=== PATIENT | female | born 1955 | race Caucasian/White ===

== ENCOUNTER → 2019-05-05 08:35 | Outpatient (BNVA) | payer MEDICARE, MEDICAID, SELFPAY | PROVIDERS: Family Provider Family Medicine; PCP Family Medicine; Visit Provider Anesthesiology | DX: M51.36 Other intervertebral disc degeneration, lumbar region (principal); M47.816 Spondylosis without myelopathy or radiculopathy, lumbar region; M17.12 Unilateral primary osteoarthritis, left knee; M19.019 Primary osteoarthritis, unspecified shoulder; M75.41 Impingement syndrome of right shoulder; Z79.891 Long term (current) use of opiate analgesic | CPT/HCPCS: 99214 ==

== ENCOUNTER → 2019-07-06 09:34 | Outpatient (BNVA) | payer MEDICARE, MEDICAID, SELFPAY | PROVIDERS: Family Provider Family Medicine; PCP Family Medicine; Visit Provider Nurse Practitioner | DX: M54.5 Low back pain (principal); M25.562 Pain in left knee; Z79.891 Long term (current) use of opiate analgesic | CPT/HCPCS: 99213; 99214 ==

== ENCOUNTER → 2019-11-03 08:55 | Outpatient (BNVA) | payer MEDICARE, MEDICAID, SELFPAY | PROVIDERS: Family Provider Family Medicine; PCP Family Medicine; Visit Provider Anesthesiology | DX: M47.816 Spondylosis without myelopathy or radiculopathy, lumbar region (principal); M51.36 Other intervertebral disc degeneration, lumbar region; M54.9 Dorsalgia, unspecified; M17.12 Unilateral primary osteoarthritis, left knee; Z79.891 Long term (current) use of opiate analgesic | CPT/HCPCS: 99214 ==

== ENCOUNTER → 2020-01-05 10:33 | Outpatient (BNVA) | payer MEDICARE, MEDICAID, SELFPAY | PROVIDERS: Family Provider Family Medicine; PCP Family Medicine; Visit Provider Nurse Practitioner | DX: M51.36 Other intervertebral disc degeneration, lumbar region (principal); M17.12 Unilateral primary osteoarthritis, left knee; G58.8 Other specified mononeuropathies; Z79.891 Long term (current) use of opiate analgesic | CPT/HCPCS: 99213; 99214 ==

== ENCOUNTER → 2020-03-06 07:47 | Outpatient (BNVA) | payer MEDICARE, MEDICAID, SELFPAY | PROVIDERS: Family Provider Family Medicine; PCP Internal Medicine; Visit Provider Anesthesiology | DX: M51.36 Other intervertebral disc degeneration, lumbar region (principal); M47.816 Spondylosis without myelopathy or radiculopathy, lumbar region; M54.9 Dorsalgia, unspecified; Z79.891 Long term (current) use of opiate analgesic | CPT/HCPCS: 99212; 99214 ==

== ENCOUNTER → 2020-05-07 08:38 | Outpatient (BNVA) | payer MEDICARE, MEDICAID, SELFPAY | PROVIDERS: Family Provider Family Medicine; PCP Internal Medicine; Visit Provider Anesthesiology | DX: G89.29 Other chronic pain (principal); M47.816 Spondylosis without myelopathy or radiculopathy, lumbar region; M51.36 Other intervertebral disc degeneration, lumbar region; M54.9 Dorsalgia, unspecified; M75.41 Impingement syndrome of right shoulder; M19.019 Primary osteoarthritis, unspecified shoulder; M25.561 Pain in right knee; M17.12 Unilateral primary osteoarthritis, left knee; Z79.891 Long term (current) use of opiate analgesic | CPT/HCPCS: 99214 ==

== ENCOUNTER → 2020-07-02 07:58 | Outpatient (BNVA) | payer MEDICARE, MEDICAID, SELFPAY | PROVIDERS: Family Provider Family Medicine; PCP Internal Medicine; Visit Provider Anesthesiology | DX: G89.29 Other chronic pain (principal); M51.36 Other intervertebral disc degeneration, lumbar region; M47.816 Spondylosis without myelopathy or radiculopathy, lumbar region; M54.9 Dorsalgia, unspecified; M75.41 Impingement syndrome of right shoulder; M25.512 Pain in left shoulder; M19.019 Primary osteoarthritis, unspecified shoulder; M17.12 Unilateral primary osteoarthritis, left knee; M25.561 Pain in right knee; Z79.891 Long term (current) use of opiate analgesic | CPT/HCPCS: 99214 ==

== ENCOUNTER → 2020-08-02 08:30 | Outpatient (BNVA) | payer MEDICARE, MEDICAID, SELFPAY | PROVIDERS: Family Provider Family Medicine; PCP Internal Medicine; Visit Provider Anesthesiology | DX: G89.29 Other chronic pain (principal); M47.816 Spondylosis without myelopathy or radiculopathy, lumbar region; M51.36 Other intervertebral disc degeneration, lumbar region; M54.9 Dorsalgia, unspecified; M19.019 Primary osteoarthritis, unspecified shoulder; M75.41 Impingement syndrome of right shoulder; M25.512 Pain in left shoulder; M17.12 Unilateral primary osteoarthritis, left knee; M25.561 Pain in right knee; F17.210 Nicotine dependence, cigarettes, uncomplicated; Z79.891 Long term (current) use of opiate analgesic | CPT/HCPCS: 99214 ==

== ENCOUNTER → 2020-10-01 09:16 | Outpatient (BNVA) | payer MEDICARE, MEDICAID, SELFPAY | PROVIDERS: Family Provider Family Medicine; PCP Internal Medicine; Visit Provider Nurse Practitioner | DX: M51.36 Other intervertebral disc degeneration, lumbar region (principal); M47.816 Spondylosis without myelopathy or radiculopathy, lumbar region; M54.9 Dorsalgia, unspecified; G58.8 Other specified mononeuropathies; M17.12 Unilateral primary osteoarthritis, left knee; M19.019 Primary osteoarthritis, unspecified shoulder; M75.41 Impingement syndrome of right shoulder; F17.210 Nicotine dependence, cigarettes, uncomplicated; Z79.891 Long term (current) use of opiate analgesic | CPT/HCPCS: 99212; 99213 ==

== ENCOUNTER → 2020-12-04 07:54 | Outpatient (BNVA) | payer MEDICARE, MEDICAID, SELFPAY | PROVIDERS: Family Provider Family Medicine; PCP Internal Medicine; Visit Provider Anesthesiology | DX: M51.36 Other intervertebral disc degeneration, lumbar region (principal); M47.816 Spondylosis without myelopathy or radiculopathy, lumbar region; M25.561 Pain in right knee; M25.562 Pain in left knee; M25.511 Pain in right shoulder; M25.512 Pain in left shoulder; Z79.891 Long term (current) use of opiate analgesic | CPT/HCPCS: 99214 ==

== ENCOUNTER → 2021-01-29 08:32 | Outpatient (BNVA) | payer MEDICARE, MEDICAID, SELFPAY | PROVIDERS: Family Provider Family Medicine; PCP Internal Medicine; Visit Provider Anesthesiology | DX: M51.36 Other intervertebral disc degeneration, lumbar region (principal); M47.816 Spondylosis without myelopathy or radiculopathy, lumbar region; M25.561 Pain in right knee; M25.562 Pain in left knee; M25.511 Pain in right shoulder; M25.512 Pain in left shoulder; Z79.891 Long term (current) use of opiate analgesic | CPT/HCPCS: 99214 ==

== ENCOUNTER → 2021-05-27 07:52 | Outpatient (BNVA) | payer MEDICARE, MEDICAID, SELFPAY | PROVIDERS: Family Provider Family Medicine; PCP Internal Medicine; Visit Provider Anesthesiology | DX: G89.29 Other chronic pain (principal); M54.50 Low back pain, unspecified; M25.561 Pain in right knee; M25.562 Pain in left knee; M25.511 Pain in right shoulder; M25.512 Pain in left shoulder; F17.210 Nicotine dependence, cigarettes, uncomplicated; Z79.891 Long term (current) use of opiate analgesic | CPT/HCPCS: 99214 ==

== ENCOUNTER 2021-07-30 11:24 | Outpatient (CLI) | payer MEDICARE, MEDICAID, SELFPAY ==
--- NOTE | 2021-07-30 11:36 | CT_ITS ---
WS: [id number] CT LUMBAR SPINE TECHNIQUE: Noncontrast CT of the lumbar spine with coronal and sagittal reformatted images. CLINICAL INFORMATION: LOW BACK PAINQ COMPARISON: None. DLP: 2700.[address] scans at [facility] use at least one of these dose optimization techniques: automated e xposure control; mA and/or kV adjustment per patient size (includes targeted exams where dose is matc hed to clinical indication); or iterative reconstruction. FINDINGS: Advanced multilevel degenerative disc disease with disc space narrowing throughout the lumbar spine w ith vacuum disc phenomenon. Grade 1 anterolisthesis L4 on L5 measuring 5 mm. No acute appearing compr ession fractures. Mild lumbar curve convex LEFT. L1-L2: Mild disc osteophytic ridging. Mild central canal stenosis. Mild LEFT foraminal narrowing. RIG HT foramen is patent. Moderate facet arthropathy with ligamentum flavum hypertrophy. Impingement on t he subarticular recess LEFT greater than RIGHT. L2-L3: Mild central canal stenosis with mild annular bulging. Moderate facet arthropathy ligamentum f lavum hypertrophy. Foramen are patent. L3-L4: Moderate central canal stenosis due to disc bulging in combination with facet arthropathy and ligamentum flavum hypertrophy. Foramen are patent. Impingement on the LEFT subarticular recess. L4-L5: Grade 1 anterolisthesis. RIGHT subarticular and proximal foraminal disc bulging results in sev ere central canal stenosis. Impingement traversing RIGHT greater than LEFT L5 nerve roots. Impingemen t on the exiting RIGHT L4 nerve root with moderate to severe RIGHT foraminal narrowing. Mild LEFT for aminal narrowing. Moderate to advanced facet arthropathy with ligamentum flavum hypertrophy. L5-S1: Disc osteophytic ridging. Mild central canal stenosis. Moderate RIGHT greater than LEFT forami nal narrowing. Impingement on the exiting RIGHT L5 nerve root. Moderate facet arthropathy ligamentum flavum flavum hypertrophy. Lung bases are well aerated. Adrenal glands are normal. Partially visualized LEFT renal cyst. Normal caliber abdominal aorta. CT/CT lumbar spine wo con* [id number] IMPRESSION: 1. Advanced multilevel degenerative disc disease throughout the lumbar spine w ith vacuum disc phenomenon. 2. Severe central canal stenosis L4-L5 with grade 1 anterolisthesis. RIGHT for aminal disc protrusion with moderate to severe RIGHT L4-L5 foraminal narrowing. 3. Mild central canal stenosis L1-L2, L2-L3, and moderate central canal stenos is L3-L4. 4. Disc osteophytic ridging L5-S1 with mild central canal stenosis and slight impingement traversing S1 nerve roots. Moderate RIGHT greater than LEFT foramin al narrowing at this level. 5. Facet arthropathy worse L4-L5 and L5-S1.
--- NOTE | 2021-07-30 11:38 | XR_ITS ---
WS: [id number] XR lumbar spine f/e only 19991 REASON FOR EXAM: SPONDYLOLISTHESIS LUMBAR REGION FINDINGS: Mild biconcave compression deformities most notable at L3. No change from 01/10/2013. Moderate narrowing of the intervertebral disc L1-L4 with a more significant narrowing at L4-L5 and ne ar complete obliteration of the disc space at L5-S1. Anterolisthesis of about 11 mm of L4 on L5 in the neutral position. This increases to about 13 mm wit h flexion and reduces somewhat with extension. This degree of anterolateral listhesis is increased co mpared to the previous examination of 01/10/2013. XR/XR lumbar spine f/e only [id number] IMPRESSION: Degenerative spondylosis of the lumbar spine as above.
== END 2021-07-30 11:25 | disposition home or self-care (01) ==
PROVIDERS: Visit Provider Nurse Practitioner
DX: M43.16 Spondylolisthesis, lumbar region (principal); M51.36 Other intervertebral disc degeneration, lumbar region; M48.061 Spinal stenosis, lumbar region without neurogenic claudication; M25.78 Osteophyte, vertebrae; M47.816 Spondylosis without myelopathy or radiculopathy, lumbar region; M47.817 Spondylosis without myelopathy or radiculopathy, lumbosacral region
CPT/HCPCS: 72120; 72131

== ENCOUNTER 2023-06-24 06:38 | Outpatient (CLI) | payer MEDICARE, MEDICAID, SELFPAY ==
--- NOTE | 2023-06-24 07:23 | CT_ITS ---
WS: [id number] CT PARANASAL SINUSES HISTORY: MAXILLARY NASAL OBSTRUCTION/SINUSITIS TECHNIQUE: Contiguous 2.0 mm axial images obtained through the sinuses. Images are reconstructed in s agittal and coronal planes. All CT scans at [facility] use at least one of these dose optimiz ation techniques: automated exposure control; mA and/or kV adjustment per patient size (includes targ eted exams where dose is matched to clinical indication); or iterative reconstruction. DLP: 440.78 mGy.cm COMPARISON: None available. Large destructive expansile heterogeneous mass centered in the LEFT paranasal sinuses. Mass is expans ile destroying the adjacent osseous structures and invading into the LEFT orbit and LEFT calvarium. T here is displacement of the LEFT frontal lobe and the dura. Mass extends over a length of 5.8 cm and transversely by 2.9 cm. There is calcification or densely inspissated secretions within the central p ortion of the mass. The central portion of the mass is near the ethmoid sinuses. There is expansion s uperiorly through the frontal bone and destruction of the cribriform plate. There is expansion across the midline into the RIGHT ethmoid air cells and also into the LEFT orbit. There is destruction of t he medial wall of the LEFT orbit and also the floor of the orbit. Tumor extends into the LEFT frontal lobe through a destroyed frontal sinus and roof of the LEFT orbit. Rightward bowing and destruction of the nasal septum. Obliteration of the lamina papyracea and medial wall of the LEFT orbit. Nasal bones are displaced and eroded. The LEFT globe is being displaced ante riorly with exophthalmos. Soft tissue mass abuts the medial rectus muscle. Extensive soft tissue exte nds into the frontal sinus is also with osseous destruction. IMPRESSION: 1. There is a large expansile tumor with its epicenter near the LEFT ethmoid air cells. Tumor extend s over a length of 5.8 cm x 2.9 cm. Tumor extends into the LEFT frontal sinus with obvious bone destr uction. There is destruction of the LEFT cribriform plate and the tumor extends into the LEFT frontal lobe. There is significant mass effect and destruction of the LEFT orbit with exophthalmos of the LE FT globe. Differential includes aggressive neoplastic tumor such as undifferentiated sinonasal carcin lauren, squamous cell, esthesioneuroblastoma, B-cell lymphoma and a very aggressive long-term mucocele. Recommend consultation with ENT at this time.
== END 2023-06-24 06:39 | disposition home or self-care (01) ==
LOC: RAD 06:40
PROVIDERS: Visit Provider Nurse Practitioner Family
DX: D49.1 Neoplasm of unspecified behavior of respiratory system (principal); J32.0 Chronic maxillary sinusitis
CPT/HCPCS: 70486

== ENCOUNTER → 2023-06-28 09:44 | Outpatient (BNVA) | payer MEDICARE, MEDICAID, SELFPAY | PROVIDERS: PCP Nurse Practitioner Family; Visit Provider Otolaryngology | DX: D49.1 Neoplasm of unspecified behavior of respiratory system (principal) | CPT/HCPCS: 99205 ==

== ENCOUNTER 2023-09-27 10:42 | Emergency (ER) | payer MEDICARE, MEDICAID, SELFPAY ==
[2023-09-27 10:45] VITALS: BP 98/67; PULSE 81; RESP 16; TEMP 37; O2SAT 95; BMI 31.5
[2023-09-27 10:53] VITALS: BP 116/67
--- NOTE | 2023-09-27 10:54 | XRR_ITS ---
PROCEDURE INFORMATION: Exam: XR Chest Exam date and time: 09/27/2023 11:03 AM Age: 68 years old Clinical indication: Cough and dyspnea; Additional info: Dyspnea/cough TECHNIQUE: Imaging protocol: Radiologic exam of the chest. Views: 1 view. COMPARISON: No relevant prior studies available. FINDINGS: Lungs: Unremarkable. No consolidation. Pleural spaces: Unremarkable. No pleural effusion. No pneumothorax. Heart/Mediastinum: Unremarkable. No cardiomegaly. Bones/joints: Unremarkable. XR/XR chest 1V portable [id number] IMPRESSION: No acute findings.
--- NOTE | 2023-09-27 11:09 | ECG_ITS ---
[facility] Test Date: 2023-09-27 Pat Name: Janette Coley Department: Room: Gender: Female Destination Specialist: : 1955 Requested By: Fred Drake Order Number: [id number] Camila MD: Paddy Adames M.D. Measurements Intervals [place] Rate: 83 P: 24 FL: 169 QRS: 32 QRSD: 88 T: 34 QT: 368 QTc: 434 Interpretive Statements SINUS RHYTHM No previous ECG available for comparison Electronically Signed On 09-27-2023 14:30:53 CDT by Paddy Adames M.D. [email or web address] [facility].[employer]/store/OM/[id number]
[2023-09-27 11:36] LABS: Basophils % 0.4 %; Eosinophils # 0.2 10^3/uL (0.0-0.8); Eosinophils % 1.7 %; Hematocrit 29.7 % (36-47); Lymphocytes # 1.7 10^3/uL (0.8-4.8); Mean Corpuscular Hemoglobin 31.4 pg (27-33); Mean Platelet Volume 9.3 fL (7.4-10.4); Monocytes # 0.7 10^3/uL (0.2-0.9); Monocytes % 6.7 %; Neutrophils # 7.16 10^3/uL (1.8-7.7); Neutrophils % 73.4 %; Nucleated Red Blood Cells % 0 %; Platelet Count 411 10^3/cmm (157-399); Red Blood Count 3.03 10^6/uL (3.85-5.65); Red Cell Distribution Width 16.5 % (12.1-15.1); White Blood Count 9.76 10^3/uL (3.29-11.43)
[2023-09-27 11:54] LABS: Alanine Aminotransferase 13 U/L (0-33); Albumin Level 3.4 g/dL (3.5-5.2); Alkaline Phosphatase 89 U/L (35-105); Anion Gap 11.2 (5-19); Aspartate Amino Transferase 16 U/L (0-32); Blood Urea Nitrogen 19 mg/dL (8-23); Calcium 8.8 mg/dL (8.5-10.5); Carbon Dioxide 30 mmol/L (22-29); Chloride 101 mmol/L (98-107); Creatinine Clr Calc Pharmacy 83.6884; Globulin 2.7 g/dL (1.3-4.6); Glomerular Filtration Rate 82.7 mL/min (90-130); Glucose 99 mg/dL (65-115); Osmolality Calculated 288 mOsm/kg (285-295); Potassium 4.2 mmol/L (3.5-5.1); Sodium 138 mmol/L (136-145); Total Bilirubin 0.3 mg/dL (0.15-1.2); Total Protein 6.1 g/dL (6.6-8.7)
[2023-09-27 12:14] LABS: Add Urine Microscopic? YES; Bilirubin Urine Neg (Negative); Blood Urine 2+ (Negative); Glucose Urine UA Norm (Normal); Ketones Urine Negative (Negative); Leukocyte Esterase Urine Trace (Negative); Nitrate Urine Positive (Negative); Protein Urine Neg (Negative); Specific Gravity, Urine 1.005 (1.005-1.030); Urine Appearance Cloudy (CLEAR); Urine Color Yellow (Yellow); Urobilinogen Urine 1 mg/dL (Negative); pH Urine 7 (5-7)
[2023-09-27 12:16] LABS: Add Urine Culture? Yes; Bacteria Urine 4+ /hpf; RBC Urine 0-4 /hpf (0-2); Squamous Epithelial Cell Urine 0-4 /hpf (0-5); WBC Urine 0-4 /hpf (0-5)
--- NOTE | 2023-09-27 12:36 | W.ED.WEAKNES ---
HPI - Weakness General: Chief complaint: Weakness Stated complaint: weakness Time Seen by Provider: 09/27/23 10:53 Source: patient Mode of arrival: ambulatory History of Present Illness: 68-year-old female presents emergency room via EMS complaining of generalized weakness. 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 She has not had any fever sweats chills shortness of breath. Denies any abdominal pain denies any chest pain she states she simply cannot care for herself at this point since she returned home yesterday MD Complaint: generalized weakness Relieving factors: none Exacerbating factors: none Associated symptoms: Reports decreased appetite; Denies chest pain, chills, confusion, melena, diaphoresis, dysuria, easy bruising, fever(s), headache(s), myalgias, nausea, rash, short of breath, syncope or vomiting Review of Systems Const: Denies: fever(s), chills or diaphoresis Card: Denies: chest pain or syncope Resp: Denies: dyspnea GI: Denies: abdominal pain, nausea, vomiting or melena : Denies: dysuria, urinary frequency or urinary urgency Musc: Denies: neck pain or back pain Skin/Breast: Denies: rash Neuro: Denies: headache(s) or confusion Pipe/Lymph: Denies: easy bruising PFSH ED PFSH: Medical History (Updated 09/27/23 @ 16:18 by Fred Aguilar DO) 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 contract exists Arthritis of lumbar spine DDD (degenerative disc disease), lumbar Arthralgia of lumbar spine Osteoarthritis of left knee Primary osteoarthritis, unspecified shoulder Rotator cuff impingement syndrome of right shoulder Surgical History (Updated 09/27/23 @ 16:18 by Fred Aguilar DO) History of delivery H/O mastectomy H/O breast biopsy History of tonsillectomy Family History Mother Cancer Hypertension Father CAD (coronary artery disease) Social History Smoking and tobacco/nicotine status: current every day tobacco/nicotine user Second hand smoke exposure: Yes Alcohol intake: never Substance/Drug Use: never Physical Exam Const: GENERAL APPEARANCE: cooperative and comfortable ORIENTATION/CONSCIOUSNESS: Yes awake, Yes oriented to person, Yes oriented to place and Yes oriented to time HENMT: COMMON NORMALS: normocephalic and hearing grossly normal bilaterally HEAD & SCALP: normocephalic OTHER: Left-sided facial swelling with [address] from recent surgery. Some bruising present no redness or induration Resp: COMMON NORMALS: normal respiratory effort, No retractions, No use of accessory muscles and clear to auscultation bilaterally AUSCULTATION: clear to auscultation bilaterally Cardio: COMMON NORMALS: regular rate, regular rhythm and No murmurs present (Cardio) RATE: regular rate RHYTHM: regular rhythm GI: COMMON NORMALS: Soft to palpation and No hepatosplenomegaly present AUSCULTATION: Yes normoactive bowel sounds PALPATION: Yes Soft to palpation, No Tenderness to palpation present (GI), No Guarding due to palpation present (GI) and Yes No hepatosplenomegaly present Extremity: COMMON NORMALS: normal to inspection, capillary refill normal, no clubbing, cyanosis or edema, no calf tenderness and no pedal edema Neuro: SENSORIUM/ORIENTATION: Yes oriented to person, Yes oriented to place and Yes oriented to time Skin: COMMON NORMALS: no rashes or lesions noted GENERAL SKIN EXAM: no rashes or lesions noted Course Vital Signs: Vital signs: Vital Signs Temperature 98.6 F 09/27/23 10:45 Pulse Rate 81 09/27/23 10:45 Respiratory Rate 16 09/27/23 10:45 Blood Pressure 116/67 09/27/23 10:53 Pulse Oximetry 95 09/27/23 10:45 Oxygen Delivery Me thod Room Air 09/27/23 10:45 MDM - Weakness Medical Decision Making No acute findings patient does have some anemia which will need to be monitored. Urine shows some contamination 2+ leukocytes but equal red-white and squamous cells. Hold off on starting any antibiotics until culture shows definitive infection patient denies any UTI symptoms at this time. I think she will benefit from rehab's not able to manage her ADLs at this time. Medical Records I reviewed the patient's medical records. Lab Data I reviewed the patient's lab results. 09/27/23 11:17 09/27/23 11:17 Radiology Impressions Chest X-Ray 09/27/23 10:54 IMPRESSION: No acute findings. Laboratory Results WBC 9.76 10^3/uL (3.29-11.43) 09/27/23 11:17 RBC 3.03 10^6/uL (3.85-5.65) L 09/27/23 11:17 Hgb 9.50 g/dL (11.27-16.99) L 09/27/23 11:17 Hct 29.7 % (36-47) L 09/27/23 11:17 MCV 98.0 fl (85-98) 09/27/23 11:17 MCH 31.4 pg (27-33) 09/27/23 11:17 MCHC 32.0 g/dL (30-55) 09/27/23 11:17 RDW 16.5 % (12.1-15.1) H 09/27/23 11:17 Plt Count 411 10^3/cmm (157-399) H 09/27/23 11:17 MPV 9.3 fL (7.4-10.4) 09/27/23 11:17 Neut % (Auto) 73.4 % 09/27/23 11:17 Lymph % (Auto) 17.0 % 09/27/23 11:17 Mcnairy % (Auto) 6.7 % 09/27/23 11:17 Eos % (Auto) 1.7 % 09/27/23 11:17 Baso % (Auto) 0.4 % 09/27/23 11:17 Neut # (Auto) 7.16 10^3/uL (1.8-7.7) 09/27/23 11:17 Lymph # (Auto) 1.7 10^3/uL (0.8-4.8) 09/27/23 11:17 Mcnairy # (Auto) 0.7 10^3/uL (0.2-0.9) 09/27/23 11:17 Eos # (Auto) 0.2 10^3/uL (0.0-0.8) 09/27/23 11:17 Baso # (Auto) 0.0 10^3/uL (0.0-0.1) 09/27/23 11:17 Nucleated RBC % (auto) 0 % 09/27/23 11:17 Nucleated RBCs # 0.0 /100WBC 09/27/23 11:17 Sodium 138 mmol/L (136-145) 09/27/23 11:17 Potassium 4.2 mmol/L (3.5-5.1) 09/27/23 11:17 Chloride 101 mmol/L (98-107) 09/27/23 11:17 Carbon Dioxide 30 mmol/L (22-29) H 09/27/23 11:17 Anion Gap 11.2 (5-19) 09/27/23 11:17 BUN 19 mg/dL (8-23) 09/27/23 11:17 Creatinine 0.7 mg/dL (0.5-0.9) 09/27/23 11:17 GFR Calculation 82.7 mL/min (90-130) L 09/27/23 11:17 Glucose 99 mg/dL (65-115) 09/27/23 11:17 Calculated Osmolality 288 mOsm/kg (285-295) 09/27/23 11:17 Calcium 8.8 mg/dL (8.5-10.5) 09/27/23 11:17 Total Bilirubin 0.3 mg/dL (0.15-1.2) 09/27/23 11:17 AST 16 U/L (0-32) 09/27/23 11:17 ALT 13 U/L (0-33) 09/27/23 11:17 Alkaline Phosphatase 89 U/L (35-105) 09/27/23 11:17 Total Protein 6.1 g/dL (6.6-8.7) L 09/27/23 11:17 Albumin 3.4 g/dL (3.5-5.2) L 09/27/23 11:17 Globulin 2.7 g/dL (1.3-4.6) 09/27/23 11:17 Urine Color Yellow (Yellow) 09/27/23 11:42 Urine Appearance Cloudy (CLEAR) A 09/27/23 11:42 Urine pH 7 (5-7) 09/27/23 11:42 Ur Specific [place] 1.005 (1.005-1.030) 09/27/23 11:42 Urine Protein Neg (Negative) 09/27/23 11:42 Urine Glucose (UA) Norm (Normal) 09/27/23 11:42 Urine Ketones Negative (Negative) 09/27/23 11:42 Urine Blood 2+ (Negative) H 09/27/23 11:42 Urine Nitrate Positive (Negative) H 09/27/23 11:42 Urine Bilirubin Neg (Negative) 09/27/23 11:42 Urine Urobilinogen 1 mg/dL (Negative) H 09/27/23 11:42 Ur Leukocyte Esterase Trace (Negative) H 09/27/23 11:42 Urine RBC 0-4 /hpf (0-2) H 09/27/23 11:42 Urine WBC 0-4 /hpf (0-5) H 09/27/23 11:42 Ur Squamous Epith Cells 0-4 /hpf (0-5) H 09/27/23 11:42 Amorphous Sediment Not Reportable 09/27/23 11:42 Urine Bacteria 4+ /hpf (NONE) H 09/27/23 11:42 All radiology interpretation(s) finalized by discharge Discharge Plan Discharge Patient Disposition: Home Clinical Impression: Weakness, Nasal sinus tumor, S/P enucleation Condition: Stable Prescriptions: No Action diphenhydramine HCl [Benadryl Allergy] 25 mg tablet 25 mg PO TID Incruse Ellipta 62.5 mcg/actuation blister with device 1 inh INHALATION Q24H albuterol sulfate [Ventolin HFA] 90 mcg/actuation HFA aerosol inhaler 1 inh inhalation QID PRN (Reason: Shortness Of Breath) morphine [MS Contin] 30 mg tablet extended release 30 mg PO Q12H 30 Days Qty: 60 0RF oxycodone 10 mg tablet 10 mg PO Q4H PRN (Reason: Pain) carvedilol 6.25 mg tablet 6.25 mg PO BID gabapentin 300 mg capsule 300 mg PO BID Discharge Orders: Discharge ED (Routine); Ordered 09/27/23 Ordered By: Fred Aguilar Referrals: Jessica Schmidt FNP [Primary Care Provider] - Discharge Diet: Usual diet Discharge Activity: Resume usual activity Patient Instructions: Opioid Safety, Pain Management Activity Restrictions/Additional Instructions: Thank you for choosing [facility] for your healthcare needs today. It is very important that you follow up as instructed or that you return to the Emergency Department should you have concerns or if your condition changes or worsens in any way. You were seen today for severe weakness.. Your labs show mild anemia. You do not require transfusion at this time but this should be monitored while you are at the retirement. Urine showed possible bladder infection however there was also some contaminant will await urine culture result before treating. To be discharged from the ER to [facility] for rehab. Coding Level of Care Code ED Examiner Rating Clerk for Caesar Hernadez
--- NOTE | 2023-09-27 13:05 | PC.SOCIAL ---
CM spoke to patient who states she lives at home with friends but they cant take care of her. she done really want to go to a SNF but states she will. Patient voiced no preference other then it be located in [facility]. Obtained notes from [facility] and sent referral to all 3 local rehabs at this time.
--- NOTE | 2023-09-27 15:30 | PC.SOCIAL ---
[id number] done and signed, Noelle at [facility] is only one that has showed any interest in patient at this time.
== END 2023-09-27 19:00 | disposition home or self-care (01) ==
PROVIDERS: Emergency Provider Family Medicine; PCP Nurse Practitioner Family
DX: R53.1 Weakness (principal); D49.1 Neoplasm of unspecified behavior of respiratory system; Z98.890 Other specified postprocedural states; Z72.0 Tobacco use
CPT/HCPCS: 36415; 71045; 80053; 81001; 85025; 87077; 87086; 87186; 93005; 99285

== ENCOUNTER → 2023-11-15 08:21 | Day surgery (SDC) | payer MEDICARE, MEDICAID, SELFPAY ==
--- NOTE | 2023-11-15 07:58 | XR_ITS ---
WS: [id number] PORTABLE CHEST HISTORY: Post PICC insertion COMPARISON: 09/27/2023 Interval placement of a right-sided PICC line. PICC line terminates just beyond the aortocaval juncti on. Mild pulmonary hyperexpansion. Curvilinear atelectasis posterior to the LEFT heart. No pleural effusi on or pneumothorax. Cardiac size: Normal. Mediastinum/Aorta: Mild atherosclerosis aorta. Severe degenerative changes at the LEFT shoulder joint. There is bone upon bone and loss of the chio l cortical surface. Mildly high riding humeral heads. XR/XR chest 1V portable [id number] IMPRESSION: 1. Suggest retracting the RIGHT PICC line 2 cm for more optimal positioning. 2. Otherwise chest radiograph is stable.
[2023-11-15 08:30] VITALS: BP 123/88; PULSE 86; RESP 16; TEMP 36.2; O2SAT 95
--- NOTE | 2023-11-15 09:30 | PICC.NOTE ---
Double lumen PICC placed to right basilic vein. [facility] due to need for chemotherapy. Risks and benefits discussed and informed consent obtained from patient. Right arm assessed with right baslic vein measuring 4.0 mm, straight, and apparent best choice for placement. Using sterile technique and MST, right basilic vein accessed x 1 stick. Mid-arm circumference measured 10 cm from right AC 31 cm. Trimmed cath 46 cm with 1 cm external length noted. CXR shows tip in caval atrial junction, in good position for use per radiologist. Line secured with stat-lock. Insertion site covered with Biopatch and TSM. Report given to cancer treatment nurseNgozi. Pt to return to [facility] tomorrow for 24 hour PICC dressing change.
== END ==
PROVIDERS: PCP Nurse Practitioner Family; Visit Provider Internal Medicine Medical Oncology
DX: Z45.2 Encounter for adjustment and management of vascular access device (principal)
CPT/HCPCS: 36573; 71045

== ENCOUNTER 2023-11-16 09:42 | Outpatient (CLI) | payer MEDICARE, MEDICAID, SELFPAY ==
--- NOTE | 2023-11-16 09:45 | USCV_ITS ---
Janette Coley Age: 68 Gender: F : 1955 Exam Date: 11/16/2023 10:21 Ordering Phys: Sarah De Leon APRN Technologist: JONN Exam Location: [facility] [place]_ Indication: rt arm pain and swelling basilic pic line PROCEDURES: Venous duplex imaging was performed in only the right upper extremity. The following venous structures were evaluated: internal jugular vein, subclavian vein, axillary vein, and brachial veins. In addition, the basilic vein, cephalic vein, radial vein, and ulnar vein. FINDINGS: There is a non occluding thrombus in the right basilic vein at the PICC line. No additional DVT. CONCLUSIONS Focal nonocclusive DVT asscociated with the PICC line. Dr. Franchesca Hong DO (Electronically Signed) Final Date: 16 November 2023 11:10 S
== END 2023-11-16 09:43 | disposition home or self-care (01) ==
LOC: RAD 09:44
PROVIDERS: PCP Nurse Practitioner Family; Visit Provider Nurse Practitioner Family
DX: M79.89 Other specified soft tissue disorders (principal); I82.890 Acute embolism and thrombosis of other specified veins
CPT/HCPCS: 93971

== ENCOUNTER 2023-11-23 08:45 | Oncology outpatient (recurring) (ONCR) | payer MEDICARE, MEDICAID, SELFPAY ==
--- NOTE | 2023-10-25 13:43 | N.ONRAD NP_ITS ---
Radiation Oncology New Patient Visit Patient: Janette Coley MR#: [id number] : 1955> Age: 68> Sex: Female> Dictated by: Dr. 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 Radiotherapy to date: Course: Course1, Treatment Site: SUPRACLAV, Ref. ID: SUPRACLAV, Energy: 15X, Dose/Fx (cGy): 180, #Fx: / , Dose Correction (cGy): 0, Total Dose Delivered (cGy): 5,040, Start Date: 01/27/2012, End Date: 03/10/2012, Elapsed Days: 43 Course1, Treatment Site: LT CHESTWALL, Ref. ID: CHESTWALL, Energy: 6X, Dose/Fx (cGy): 180, #Fx: / 14, Dose Correction (cGy): 0, Total Dose Delivered (cGy): 2,520, Start Date: 01/27/2012, End Date: 03/09/2012, Elapsed Days: 42 Course1, Treatment Site: LT CHESTWALL BOLUS, Ref. ID: LT CHESTWALL, Energy: 6X, Dose/Fx (cGy): 180, #Fx: 14 / 14, Dose Correction (cGy): 0, Total Dose Delivered (cGy): 2,520, Start Date: 01/28/2012, End Date: 03/10/2012, Elapsed Days: 42 Course1, Treatment Site: LT DRAIN SITE, Ref. ID: LT DRAIN SITE, Energy: 9E, Dose/Fx (cGy): 200, #Fx: 25 / 25, Dose Correction (cGy): 0, Total Dose Delivered (cGy): 5,000, Start Date: 02/04/2012, End Date: 03/14/2012, Elapsed Days: 39 Course1, Treatment Site: [facility], Ref. ID: LT [facility], Energy: 9E, Dose/Fx (cGy): 200, #Fx: 2 / 5, Dose Correction (cGy): 0, Total Dose Delivered (cGy): 400, Start Date: 03/11/2012, End Date: 03/14/2012 Elapsed Days: 3Summary > No prior radiation therapy. Chief Complaint / History of Present Illness: Patient initially began to have fullness and sinus pressure in March 2023. She progressed to the point where she had developed double vision. Additional workup included a PET scan which showed a hypermetabolic infiltrative mass centered on the left nasal cavity and ethmoid sinus with local regional extension into the anterior cranial fossa, left retromaxillary space, left pterygopalatine fossa with slightly progressive hypermetabolic left frontal lobe bone outer table erosion. She subsequently on September 16, 2023 underwent resection of this with multiple positive margins subsequently. No lymph nodes were noted. No perineural invasion was noted. She is here today to discuss postoperative radiation for stage T4 lesion Current Medications: Advair, aspirin, benadryl, calcium 600+D, cholecalciferol, colace, diazepam, diphenhydrAMINE HCl, gabapentin, morphine Sulfate CR, morphine Sulfate ER, naprosyn, nicoderm CQ, nystatin, oxyCODONE HCl, oxyCODONE HCl IR, senna S, skelaxin, spiriva HandiHaler, valium, ventolin HFA. Allergies: No Known Allergies Medical History: Anxiety, asthma, chronic obstructive pulmonary disease, hyperlipidemia, osteoarthritis, osteoporosis. No history of collagen vascular disease. No previous radiation therapy. Surgical History: Breast biopsy on 06/17/2011 (left), section, mastectomy on 07/22/2011 (left modified radical) and tonsillectomy in 2005. Family History: Father is at age 85 having experienced cardiovascular disease. Mother is at age 85 having experienced Cancer, and hypertension. Social History: Last screened on 01/18/2017 - Current every day smoker 0.5 packs/day for 46 years (23 pack years). Last screened on 07/13/2016 - Never drank. Patient indicated use of the following products: cigarettes. Patient indicated access to the following support systems: Lives with spouse, significant other, family, or friends and Transportation problems exist and will require assistance. Patient indicated the following nutritional habits: regular meals. Patient indicated participation in the following forms of activity: Sedentary. Current Complaints / Review of Systems: . Vital Signs: Performed on 10/25/2023 10:07 AM BMI - 32.284 kg/m2 (high), Height - 70 in, Weight - 225 lbs, Temperature - 98.7 f, Pulse - 84 /min, Respiration - 17 /min, O2 Sat - 99 %, Pain - 9, Fatigue - 0 and BP - 128/ 81 mm(hg). Physical Exam: General: Patient is alone today. She has had a marked resection of the left orbit and left side of her face HEENT: She has postsurgical changes across the left upper portion of her face. The left eye has been resected. Tissue is been pulled together. Her right eye appears to be normal. Pulmonary: Respiratory rate is regular nonlabored Cardiovascular: Regular rate and rhythm Abdomen: Moderately protuberant and android pattern Neurological: Alert and orient x 3. Speech intact. Patient uses a walker. 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, Diagnosed 07/16/2011 (active) stage iiib, t4b, pn0, m0, Secondary, 300.00 - anxiety state, unspecified, Diagnosed 04/26/1799 (active) , Secondary, 496 - chronic airway obstruction, not elsewhere classified, Diagnosed 04/26/1799 (active) , Secondary, 493.20 - chronic obstructive asthma without mention of status asthmaticus, Diagnosed 04/26/1799 (active) , Secondary, 715.00 - osteoarthrosis, generalized, involving unspecified site, Diagnosed 04/26/1799 (active) , Secondary, 733.00 - osteoporosis, unspecified, Diagnosed 04/26/1799 (active) , Secondary, 272.4 - other and unspecified hyperlipidemia, Diagnosed 04/26/1799 (active) and Secondary, 327.23 - obstructive sleep apnea (adult) (pediatric), Diagnosed 11/28/2013 (active) . Lab: Imaging: See HPI Impression: Stage T4 N0 poorly differentiated squamous of carcinoma of the sinus status post resection with positive margins Plan: I reviewed with her the use of radiation in her case. We discussed how after the surgery they did the best they could but there were is positive margins in multiple locations. She is familiar with the radiation. At this point she will return in the next 2 to 3 weeks to undergo simulation and will begin her treatments shortly thereafter with a plan for a 5 to 6-week course of treatment. I reviewed with her the risk and side effects both acute and long-term. And she has agreed to the above plan. Signed by: 10/25/2023 1:41:57 PM <<Signature on File>> Time spent with patient:35 CPT Code: CPT Code:
--- NOTE | 2023-11-02 08:00 | PETR_ITS ---
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 Then, PET images were obtained. Attenuation corrected images were constructed using the CT scan. Fused images of PET and CT were reviewed. The standardized uptake values (SUV) reported below are maximum values within a region of interest, expressed in gm/ml. Exam includes orbital meatal line to mid-thigh. Radiopharmaceutical: 10.54 mCi F-18 FDG (Fluorodeoxyglucose), IV. Time of imaging post radiopharmaceutical administration: 1 hour Injection site: Right antecubital COMPARISON: PT PET Scan 08/23/2023 7:23 AM, MRI head orbits 07/26/2023, CT sinus 06/24/2023 FINDINGS: Brain: There is asymmetric elevated uptake along the anterior inferior left frontal lobe extending into the region of the ethmoid sinuses, best demonstrated on series 12 between images 35 through 41, SUV max 6.6. Previously noted uptake within a mass in this region on the prior PET-CT demonstrated SUV max 18.5. Orbits: The left orbital contents have been resected. Paranasal sinuses: Postoperative changes are new involving partial root section of the frontal sinus, left orbital roof, medial left orbital wall and orbital floor, left maxillary sinus and portions of the ethmoid sinuses are noted. Opacification of the sphenoid sinus on the left is noted with an SUV max 3.8 on series 3, image 42. Opacification of the residual left frontal sinuses moderate without elevated uptake. Salivary glands: A focus of uptake along the posterior right parotid gland is noted, SUV max 4.0 (previously 11.1) on series 3, image 54 within a soft tissue density nodule in this region measuring 6 mm (previously 8 mm). There are new surgical clips in the soft tissues of the left neck with evidence of resection of the left submandibular gland. Pharynx: No abnormal uptake. Larynx: There is physiologic appearing uptake within the larynx without evidence of a discrete correlating mass, SUV max 6.2. Thyroid: A non radiotracer avid peripherally calcified posteriorly projecting left thyroid nodule is noted on series 3, image 84 without elevated uptake compatible with a benign finding. Lungs, pleura and trachea: No abnormal uptake. Heart: Normal physiologic uptake. Mediastinal space: No abnormal uptake. Esophagus: Uptake within the proximal to mid esophagus is noted, SUV max 4.4 on series 3, image 100 (previously 7.8), with interval resolution of previously noted mild uptake in the mid to distal esophagus. No discrete esophageal mass is identified. Liver: No abnormal uptake. Gallbladder and biliary ducts: No abnormal uptake. Low-density stones in the gallbladder are present. Pancreas: No abnormal uptake. Spleen: No abnormal uptake. Adrenal glands: No abnormal uptake. Kidneys and ureters: Normal physiologic uptake. A rounded low-density structure in the superior pole of the left kidney is not radiotracer avid likely related to a benign cyst. Stomach and bowel: No abnormal uptake. There are scattered colonic diverticula. Reproductive: No abnormal uptake. There is lobulated enlargement of the uterus which contains course of calcifications which are likely within leiomyomas. No abnormal uptake. Vasculature: No abnormal uptake. Lymph nodes: No abnormal uptake. No lymphadenopathy in the head, neck, chest, abdomen, pelvis, and extremities. Skeleton: Asymmetric uptake in the region of the left pterygoid bone is noted, SUV max 3.4 (previously 5.7) without definitive evidence of a discrete lesion in this area. Uptake in the region of the bilateral glenohumeral joint capsules is present which is likely inflammatory, associated with underlying severe left and mild right glenohumeral joint primary osteoarthritic changes. Degenerative changes in the spine are present. A large amount of fluid in the left subacromial subdeltoid bursa is noted. Soft tissues: There are postoperative changes of left mastectomy with a non radiotracer avid thin walled fluid collection deep to the pectoralis musculature measuring up to 2.7 x 0.8 cm in the axial plane on series 3, image 135 without elevated uptake. This collection is slightly decreased in size likely representing a postoperative seroma. A fluid collection in the deep subcutaneous fat of the anterolateral right thigh adjacent to the rectus femoris and vastus lateralis muscles is noted, measuring up to 6.8 x 4.4 cm in the axial plane on series 3, image 298. Mild uptake along the margins of this collection are noted, greatest superiorly, SUV max 3.5 on series 3, image 264. There are surgical clips medial to this collection and the collection may be new since the prior PET-CT which did not fully extend through this region. METRICS: Mediastinal blood pool: SUV max 2.3 PET/PET skull to thigh INIT [id number] IMPRESSION: 1. Interval postoperative changes are noted in the region of the previously identified radiotracer avid mass centered in the left ethmoid sinus, nasal cavity and left anterior cranial fossa. A mild degree of uptake along the anterior inferior left frontal lobe and involving the left pterygoid bone and left sphenoid sinus may represent post treatment inflammatory changes or residual/recurrent malignancy. Consider further assessment with MRI of the brain with and without contrast for more definitive evaluation. 2. Interval decrease in size of a possibly malignant soft tissue density nodule in the posterior right parotid gland with interval decrease in uptake. 3. Decreased size of a probable postoperative seroma involving the left chest wall. 4. A subcutaneous fluid collection in the proximal right thigh is noted which may be new since the prior PET-CT with mild, likely inflammatory uptake within its margins. This may represent a postoperative seroma. A malignant etiology for the uptake is less likely. Correlation with surgical history is recommended. 5. Severe left glenohumeral joint primary osteoarthritic changes with evidence of extensive subacromial subdeltoid bursitis. 6. Interval decrease in esophageal uptake which may be related to resolving inflammatory changes/esophagitis. 7. Cholelithiasis. 8. Additional nonurgent findings as detailed above.
[2023-11-08 12:59] LABS: Basophils % 0.5 %; Eosinophils # 0.3 10^3/uL (0.0-0.8); Eosinophils % 3.9 %; Hematocrit 38.8 % (36-47); Lymphocytes # 1.9 10^3/uL (0.8-4.8); Mean Corpuscular HGB Conc 30.7 g/dL (30-55); Mean Corpuscular Hemoglobin 28.1 pg (27-33); Mean Corpuscular Volume 91.5 fl (85-98); Mean Platelet Volume 9.5 fL (7.4-10.4); Monocytes # 0.4 10^3/uL (0.2-0.9); Monocytes % 5.6 %; Neutrophils # 4.97 10^3/uL (1.8-7.7); Neutrophils % 64.7 %; Nucleated Red Blood Cells % 0 %; Platelet Count 350 10^3/cmm (157-399); Red Blood Count 4.24 10^6/uL (3.85-5.65); Red Cell Distribution Width 15.7 % (12.1-15.1); White Blood Count 7.68 10^3/uL (3.29-11.43)
[2023-11-08 13:00] LABS: Reticulocyte % 1.4 % (0.5-2.0)
[2023-11-08 13:36] LABS: Alanine Aminotransferase 7 U/L (0-33); Albumin Level 3.7 g/dL (3.5-5.2); Alkaline Phosphatase 112 U/L (35-105); Anion Gap 13.9 (5-19); Aspartate Amino Transferase 9 U/L (0-32); Blood Urea Nitrogen 12 mg/dL (8-23); Carbon Dioxide 27 mmol/L (22-29); Chloride 101 mmol/L (98-107); Creatinine Clr Calc Pharmacy 82.7513; Ferritin 57 ng/mL (15-150); Globulin 3.5 g/dL (1.3-4.6); Glomerular Filtration Rate 70.9 mL/min (90-130); Glucose 91 mg/dL (65-115); Iron 42 ug/dL (37-145); Osmolality Calculated 285 mOsm/kg (285-295); Percent Saturation 15.6 % (20-50); Potassium 3.9 mmol/L (3.5-5.1); Sodium 138 mmol/L (136-145); Total Bilirubin 0.3 mg/dL (0.15-1.2); Total Iron Binding Capacity 269 mcg/dl; Total Protein 7.2 g/dL (6.6-8.7); Unsaturated Iron Binding 227 ug/dL (112-347); Vitamin B12 257 pg/mL (232-1245)
[2023-11-08 13:41] LABS: LAB Peripheral Smear Sent for Review
[2023-11-08 13:44] LABS: Folate Level 5.5 ng/mL (4.8-37.3)
[2023-11-08 14:27] LABS: Free T4 Free Thyroxine 1.48 ng/dL (0.82-1.77)
[2023-11-08 14:33] LABS: Hepatitis A Antibody IgM Non-Reactive (Nonreactive); Hepatitis B Core AB, Total Non-Reactive (Nonreactive); Hepatitis B Surface AB < 3.5 (11.5-1000); Hepatitis B Surface Antigen Non-Reactive (Nonreactive); Hepatitis C Virus Antibody Non-Reactive (Nonreactive)
[2023-11-08 15:16] LABS: HIV 1 & 2 Antibody Non-Reactive (Non-Reactiv); HIV 1 & 2 Antigen Non-Reactive (Non-Reactiv)
[2023-11-11 09:19] LABS: Methylmalonic Acid 165 nmol/L (69-390)
[2023-11-12 07:04] LABS: Epstein Barr Virus DNA PCR NOT DETECTED; Epstein Barr Virus DNA QN PCR NOT DETECTED copies/mL; Epstein Barr Virus Source WHOLE BLOOD
[2023-11-12 14:45] LABS: Soluble Transferrin Receptor 1.92 mg/L (0.76-1.76)
[2023-11-16 09:12] LABS: Basophils # 0.1 10^3/uL (0.0-0.1); Eosinophils # 0.5 10^3/uL (0.0-0.8); Eosinophils % 5.5 %; Hematocrit 40.7 % (36-47); Lymphocytes # 2.5 10^3/uL (0.8-4.8); Lymphocytes % 29.7 %; Mean Corpuscular HGB Conc 30.7 g/dL (30-55); Mean Corpuscular Hemoglobin 28.2 pg (27-33); Mean Corpuscular Volume 91.9 fl (85-98); Mean Platelet Volume 9.5 fL (7.4-10.4); Monocytes # 0.6 10^3/uL (0.2-0.9); Monocytes % 6.8 %; Neutrophils # 4.72 10^3/uL (1.8-7.7); Neutrophils % 56.5 %; Nucleated Red Blood Cells % 0 %; Platelet Count 338 10^3/cmm (157-399); Red Blood Count 4.43 10^6/uL (3.85-5.65); Red Cell Distribution Width 15.6 % (12.1-15.1); White Blood Count 8.35 10^3/uL (3.29-11.43)
[2023-11-16 09:39] LABS: Alanine Aminotransferase 6 U/L (0-33); Albumin Level 3.7 g/dL (3.5-5.2); Alkaline Phosphatase 124 U/L (35-105); Anion Gap 13.7 (5-19); Aspartate Amino Transferase 14 U/L (0-32); Blood Urea Nitrogen 15 mg/dL (8-23); Calcium 8.8 mg/dL (8.5-10.5); Carbon Dioxide 25 mmol/L (22-29); Chloride 103 mmol/L (98-107); Globulin 3.2 g/dL (1.3-4.6); Glomerular Filtration Rate 49.1 mL/min (90-130); Glucose 96 mg/dL (65-115); Osmolality Calculated 285 mOsm/kg (285-295); Potassium 4.7 mmol/L (3.5-5.1); Sodium 137 mmol/L (136-145); Total Bilirubin 0.2 mg/dL (0.15-1.2); Total Protein 6.9 g/dL (6.6-8.7)
[2023-11-16 09:40] LABS: Creatinine Clr Calc Pharmacy 60.1827
[2023-11-22 08:06] LABS: Basophils # 0.1 10^3/uL (0.0-0.1); Basophils % 0.9 %; Eosinophils # 0.4 10^3/uL (0.0-0.8); Eosinophils % 4.4 %; Hematocrit 41.4 % (36-47); Lymphocytes # 2.1 10^3/uL (0.8-4.8); Lymphocytes % 23.2 %; Mean Corpuscular HGB Conc 31.2 g/dL (30-55); Mean Corpuscular Hemoglobin 28.3 pg (27-33); Mean Corpuscular Volume 90.8 fl (85-98); Mean Platelet Volume 9.4 fL (7.4-10.4); Monocytes # 0.5 10^3/uL (0.2-0.9); Monocytes % 5.6 %; Neutrophils # 5.87 10^3/uL (1.8-7.7); Neutrophils % 65.6 %; Nucleated Red Blood Cells % 0 %; Platelet Count 353 10^3/cmm (157-399); Red Blood Count 4.56 10^6/uL (3.85-5.65); Red Cell Distribution Width 15.6 % (12.1-15.1); White Blood Count 8.94 10^3/uL (3.29-11.43)
[2023-11-22 08:29] LABS: Alanine Aminotransferase 7 U/L (0-33); Albumin Level 3.8 g/dL (3.5-5.2); Alkaline Phosphatase 116 U/L (35-105); Anion Gap 14.5 (5-19); Aspartate Amino Transferase 11 U/L (0-32); Blood Urea Nitrogen 18 mg/dL (8-23); Carbon Dioxide 25 mmol/L (22-29); Chloride 102 mmol/L (98-107); Creatinine Clr Calc Pharmacy 82.6343; Globulin 3.3 g/dL (1.3-4.6); Glomerular Filtration Rate 70.9 mL/min (90-130); Glucose 97 mg/dL (65-115); Osmolality Calculated 286 mOsm/kg (285-295); Potassium 4.5 mmol/L (3.5-5.1); Sodium 137 mmol/L (136-145); Total Bilirubin 0.3 mg/dL (0.15-1.2); Total Protein 7.1 g/dL (6.6-8.7)
[2023-11-22] MEDS: magnesium sulfate premix 2 GM/50 ML PIGGYBACK IV (09:32)
[2023-11-22] MEDS: sodium chlor 0.9% + KCl 20 mEq 20 MEQ/1,000 ML BAG 500 MEQ IV (09:33)
[2023-11-22] MEDS: sodium chloride 0.9% 250 ML 75 ML IV (11:36)
[2023-11-22] MEDS: palonosetron 0.25 mg/5 mL SDV IVP (11:37)
[2023-11-22] MEDS: famotidine 20 mg/2 mL INJ IVP (11:40)
[2023-11-22] MEDS: acetaminophen 325 mg Tablet 650 MG PO (11:43)
[2023-11-22] MEDS: OLANZapine 5 mg TABLET PO (11:43)
[2023-11-22] MEDS: diphenhydrAMINE 50 mg/mL SDV 1mL 25 MG IVP (11:44)
[2023-11-22] MEDS: dexamethasone 4 mg/mL INJ 12 MG IVP (11:49)
[2023-11-22] MEDS: fosaprepitant 150 MG in sodium chloride 0.9% 150 ML 300 MG IV (12:11)
[2023-11-22] MEDS: SODIUM CHLORIDE 0.9% IV (13:08)
[2023-11-22] MEDS: CISPLATIN IV (13:08)
[2023-11-22] MEDS: potassium chloride 20 MEQ in sodium chloride 0.9% 500 ML 500 MEQ IV (14:15)
[2023-11-22] MEDS: FUROsemide 10 mg/mL SDV 2mL 20 MG IVP (14:16)
[2023-11-22 15:58] VITALS: BP 126/79; PULSE 109; RESP 20; TEMP 36.8; O2SAT 96
--- NOTE | 2023-11-23 10:15 | ONCRAD TMN_ITS ---
Radiation Oncology Weekly Treatment Management Patient: Janette Coley MR#: [id number] : 1955 Attending Physician: Dr. Tasia Marc Date of Service: 11/23/2023 Fractions: 2 out of 30 Referring Physician(s) : Giovana Whyte M.D. 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 ID: [id number], Energy: 6X, Dose/Fx (cGy): 180, #Fx: 30, Dose Correction (cGy): 0, Total Dose Delivered (cGy): 360, Start Date: 11/22/2023, Elapsed Days: 1 Reason for visit: The patient is being seen today as part of their regularly scheduled weekly on treatment visits to assess for acute toxicities from radiotherapy. Review of Systems: Patient is still having difficulty adjusting to depth perception with 1 eye. Vital Signs: Performed on 11/23/2023 9:04 AM BMI - 31.28 kg/m2 (high), Height - 70 in, Weight - 218 lbs, Temperature - 96.9 f, Pulse - 98 /min, Respiration - 20 /min, O2 Sat - 96 %, Pain - 0, Fatigue - 0 and BP - 141/ 91 mm(hg)(high). Physical Exam: No changes on exam Imaging: Radiation therapy imaging related to accurate target localization (i.e. KV, MV and CBCT) was reviewed. Appropriate changes, if any, were made to ensure treatment accuracy. Plan: Continue with treatments as planned. Signed by: Dr. Tasia Marc 11/23/2023 10:13:39 AM
== END 2023-11-23 23:59 | disposition home or self-care (01) ==
PROVIDERS: Internal Medicine; PCP Nurse Practitioner Family; Visit Provider Internal Medicine Medical Oncology
DX: Z51.0 Encounter for antineoplastic radiation therapy (principal); C31.9 Malignant neoplasm of accessory sinus, unspecified
CPT/HCPCS: 36415; 36592; 77300; 77301; 77334; 77338; 77386; 77470; 78815; 80053; 80503; 82607; 82728; 82746; 83540; 83550; 83921; 84238; 84439; 84443; 85025; 85045; 86705; 86706; 86709; 86803; 87340; 87798; 87806; 96367; 96368; 96375; 96413; 99024; 99203; 99205; 99215; A9552; J1100; J1200; J1453; J1940; J2469; J3475; J3480; J3490; J7040; J7050; J9060

== ENCOUNTER 2023-11-24 12:34 | Oncology outpatient (recurring) (ONCR) | payer MEDICARE, MEDICAID, SELFPAY | END 2023-11-24 23:59 | disposition home or self-care (01) | LOC: ONCMED 12:35 | PROVIDERS: PCP Nurse Practitioner Family; Visit Provider Internal Medicine Medical Oncology | DX: Z53.9 Procedure and treatment not carried out, unspecified reason (principal); Z51.11 Encounter for antineoplastic chemotherapy; C31.9 Malignant neoplasm of accessory sinus, unspecified; Z79.630 Long term (current) use of alkylating agent; Z79.899 Other long term (current) drug therapy; Z79.01 Long term (current) use of anticoagulants; Z51.0 Encounter for antineoplastic radiation therapy; C44.321 Squamous cell carcinoma of skin of nose; D49.1 Neoplasm of unspecified behavior of respiratory system; Z79.891 Long term (current) use of opiate analgesic; I82.409 Acute embolism and thrombosis of unspecified deep veins of unspecified lower extremity | CPT/HCPCS: 77014; 77386 ==

== ENCOUNTER 2023-12-07 07:18 | Oncology outpatient (recurring) (ONCR) | payer MEDICARE, MEDICAID, SELFPAY ==
[2023-11-29 07:52] LABS: Basophils % 0.5 %; Eosinophils # 0.3 10^3/uL (0.0-0.8); Eosinophils % 3.9 %; Hematocrit 43.1 % (36-47); Lymphocytes # 1.7 10^3/uL (0.8-4.8); Mean Corpuscular HGB Conc 31.3 g/dL (30-55); Mean Corpuscular Hemoglobin 28.3 pg (27-33); Mean Corpuscular Volume 90.4 fl (85-98); Mean Platelet Volume 9.5 fL (7.4-10.4); Monocytes # 0.6 10^3/uL (0.2-0.9); Monocytes % 7.3 %; Neutrophils # 5.89 10^3/uL (1.8-7.7); Nucleated Red Blood Cells % 0 %; Platelet Count 297 10^3/cmm (157-399); Red Blood Count 4.77 10^6/uL (3.85-5.65); Red Cell Distribution Width 15.7 % (12.1-15.1); White Blood Count 8.66 10^3/uL (3.29-11.43)
[2023-11-29 08:11] LABS: Alanine Aminotransferase 6 U/L (0-33); Albumin Level 3.6 g/dL (3.5-5.2); Alkaline Phosphatase 122 U/L (35-105); Aspartate Amino Transferase 10 U/L (0-32); Blood Urea Nitrogen 22 mg/dL (8-23); Calcium 8.8 mg/dL (8.5-10.5); Carbon Dioxide 24 mmol/L (22-29); Chloride 100 mmol/L (98-107); Globulin 3.1 g/dL (1.3-4.6); Glomerular Filtration Rate 61.9 mL/min (90-130); Glucose 94 mg/dL (65-115); Osmolality Calculated 283 mOsm/kg (285-295); Sodium 135 mmol/L (136-145); Total Bilirubin 0.2 mg/dL (0.15-1.2); Total Protein 6.7 g/dL (6.6-8.7)
[2023-11-29 08:13] LABS: Anion Gap 15.7 (5-19); Potassium 4.7 mmol/L (3.5-5.1)
[2023-11-29] MEDS: magnesium sulfate premix 2 GM/50 ML PIGGYBACK IV (09:24)
[2023-11-29] MEDS: sodium chlor 0.9% + KCl 20 mEq 20 MEQ/1,000 ML BAG 733 MEQ IV (09:25)
[2023-11-29] MEDS: sodium chloride 0.9% 250 ML 75 ML IV (10:55)
[2023-11-29] MEDS: palonosetron 0.25 mg/5 mL SDV IVP (10:56)
[2023-11-29] MEDS: dexamethasone 4 mg/mL INJ 12 MG IVP (10:56)
[2023-11-29] MEDS: acetaminophen 325 mg Tablet 650 MG PO (11:00)
[2023-11-29] MEDS: diphenhydrAMINE 50 mg/mL SDV 1mL 25 MG IVP (11:00)
[2023-11-29] MEDS: OLANZapine 5 mg TABLET PO (11:00)
[2023-11-29] MEDS: famotidine 20 mg/2 mL INJ IVP (11:02)
[2023-11-29] MEDS: fosaprepitant 150 MG in sodium chloride 0.9% 150 ML 300 MG IV (11:05)
[2023-11-29] MEDS: SODIUM CHLORIDE 0.9% IV (12:04)
[2023-11-29] MEDS: CISPLATIN IV (12:04)
[2023-11-29] MEDS: potassium chloride 20 MEQ in sodium chloride 0.9% 500 ML 500 MEQ IV (13:20)
[2023-11-29] MEDS: FUROsemide 10 mg/mL SDV 2mL 20 MG IVP (13:20)
[2023-11-29 14:50] VITALS: BP 110/62; PULSE 86; O2SAT 94
--- NOTE | 2023-11-30 09:39 | ONCRAD TMN_ITS ---
Radiation Oncology Weekly Treatment Management Patient: Brijesh Tineo MR#: [id number] : 1955> Attending Physician: Dr. Tasia Marc Date of Service: 11/30/2023 Fractions: Referring Physician(s) : Giovana Whyte M.D. 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 ID: [id number], Energy: 6X, Dose/Fx (cGy): 180, #Fx: , Dose Correction (cGy): 0, Total Dose Delivered (cGy): 1,260, Start Date: 11/22/2023, Elapsed Days: 8 Reason for visit: The patient is being seen today as part of their regularly scheduled weekly on treatment visits to assess for acute toxicities from radiotherapy. Review of Systems: She has noticed no real changes. She does continue to have some tenderness across her forehead Vital Signs: Performed on 11/30/2023 9:22 AM BMI - 30.563 kg/m2 (high), Height - 70 in, Weight - 213 lbs, Temperature - 96.7 f, Pulse - 95 /min, Respiration - 18 /min, O2 Sat - 92 % (low), Pain - 0, Fatigue - 0 and BP - 135/ 92 mm(hg)(/high). Physical Exam: On exam the skin through the radiation area is mildly erythematous. Imaging: Radiation therapy imaging related to accurate target localization (i.e. KV, MV and CBCT) was reviewed. Appropriate changes, if any, were made to ensure treatment accuracy. Plan: Will continue with her treatments as planned. She had questions today about whether she could cry and if she did whether the tears will go internally. I reassured her that all of the glands that make her tears have been removed when her eye and orbit have been resected. Signed by: Dr. aTsia Marc 11/30/2023 9:38:47 AM
--- NOTE | 2023-12-03 07:15 | MR_ITS ---
WS: [id number] MRI HEAD WITH CONTRAST TECHNIQUE: Sagittal T1, T2 axial, T2 axial FLAIR, axial susceptibility weighted imaging, axial diffus ion weighted images, and coronal T2 images were obtained. Pre and post-T1 axial and post T1 coronal i mages. ADC and FSPGR images. CLINICAL INFORMATION: initial staging COMPARISON: PET/CT 11/02/2023 FINDINGS: Postoperative changes are noted from prior resection of the LEFT nasal cavity mass. LEFT facial paran moni sinus wide local excision with flap reconstruction. Resection of the LEFT orbit, LEFT ethmoid an d maxillary sinus moreno, with LEFT globe enucleation and reconstruction. Areas of radiotracer avid FD G uptake on the prior PET/CT involving the nasal cavity and pterygoid plates as well as sphenoid sinu s likely correspond to postoperative treatment-related changes. Small amount of thin dural enhancemen t is seen overlying the LEFT frontal lobe deep to the LEFT frontal sinus and LEFT inferior frontal lo be also likely due to postoperative treatment related changes. No evidence of increasing edema or mas s effect in the LEFT frontal lobe. Small amount of encephalomalacia in the LEFT frontal lobe from hallie or resection. Otherwise no abnormal foci of intracranial enhancement. No evidence of restricted diffusion to suggest acute ischemia. Ventricular system and basal cisterns are patent. There is a slightly heterogeneous bone marrow signal in the frontal and LEFT frontopariet al calvarium likely due to treatment related changes. Normal optic chiasm and pituitary infundibulum. Mild symmetric atrophy temporal lobes hippocampal formations. Normal posterior fossa. Normal vascula r flow voids at the skull base. No extra-axial fluid collections. Mild small vessel changes. Minimal parenchymal volume loss. Small vessel changes in the olesya. MR/MR head wo/w con [id number] IMPRESSION: 1. Complex wide LEFT paranasal sinus resection with flap reconstruction extend ing into the intracranial fossa and LEFT frontal sinus. 2. No convincing evidence of residual recurrent disease. Areas of enhancement and FDG avid activity likely due to treatment and postoperative changes. 3. Encephalomalacia in the LEFT frontal lobe from surgery. No evidence of incr easing edema or mass effect. 4. No other acute findings.
[2023-12-03] MEDS: gadobenate dimeglumine 20 mL vial IV (07:41)
[2023-12-06 08:07] LABS: Basophils # 0.1 10^3/uL (0.0-0.1); Eosinophils # 0.3 10^3/uL (0.0-0.8); Eosinophils % 4.8 %; Hematocrit 38.6 % (36-47); Lymphocytes # 1.4 10^3/uL (0.8-4.8); Lymphocytes % 20.9 %; Mean Corpuscular HGB Conc 31.6 g/dL (30-55); Mean Corpuscular Hemoglobin 28.3 pg (27-33); Mean Corpuscular Volume 89.6 fl (85-98); Mean Platelet Volume 9.6 fL (7.4-10.4); Monocytes # 0.6 10^3/uL (0.2-0.9); Monocytes % 8.1 %; Neutrophils # 4.46 10^3/uL (1.8-7.7); Neutrophils % 64.9 %; Nucleated Red Blood Cells % 0 %; Platelet Count 256 10^3/cmm (157-399); Red Blood Count 4.31 10^6/uL (3.85-5.65); Red Cell Distribution Width 15.6 % (12.1-15.1); White Blood Count 6.88 10^3/uL (3.29-11.43)
[2023-12-06 08:24] LABS: Alanine Aminotransferase 7 U/L (0-33); Albumin Level 3.5 g/dL (3.5-5.2); Alkaline Phosphatase 107 U/L (35-105); Anion Gap 15.5 (5-19); Aspartate Amino Transferase 11 U/L (0-32); Blood Urea Nitrogen 15 mg/dL (8-23); Calcium 8.7 mg/dL (8.5-10.5); Carbon Dioxide 25 mmol/L (22-29); Chloride 101 mmol/L (98-107); Creatinine Clr Calc Pharmacy 81.8142; Glomerular Filtration Rate 82.7 mL/min (90-130); Glucose 91 mg/dL (65-115); Osmolality Calculated 284 mOsm/kg (285-295); Potassium 4.5 mmol/L (3.5-5.1); Sodium 137 mmol/L (136-145); Total Bilirubin 0.2 mg/dL (0.15-1.2); Total Protein 6.5 g/dL (6.6-8.7)
[2023-12-06] MEDS: sodium chlor 0.9% + KCl 20 mEq 20 MEQ/1,000 ML BAG 500 MEQ IV (09:17)
[2023-12-06] MEDS: magnesium sulfate premix 2 GM/50 ML PIGGYBACK IV (09:17)
[2023-12-06] MEDS: OLANZapine 5 mg TABLET PO (11:07)
[2023-12-06] MEDS: acetaminophen 325 mg Tablet 650 MG PO (11:07)
[2023-12-06] MEDS: sodium chloride 0.9% 250 ML 75 ML IV (11:08)
[2023-12-06] MEDS: diphenhydrAMINE 50 mg/mL SDV 1mL 25 MG IVP (11:10)
[2023-12-06] MEDS: palonosetron 0.25 mg/5 mL SDV IVP (11:12)
[2023-12-06] MEDS: famotidine 20 mg/2 mL INJ IVP (11:13)
[2023-12-06] MEDS: dexamethasone 4 mg/mL INJ 12 MG IVP (11:15)
[2023-12-06] MEDS: fosaprepitant 150 MG in sodium chloride 0.9% 150 ML 300 MG IV (11:18)
[2023-12-06] MEDS: SODIUM CHLORIDE 0.9% IV (12:16)
[2023-12-06] MEDS: CISPLATIN IV (12:16)
[2023-12-06] MEDS: FUROsemide 10 mg/mL SDV 2mL 20 MG IVP (13:22)
[2023-12-06] MEDS: potassium chloride 20 MEQ in sodium chloride 0.9% 500 ML 500 MEQ IV (13:24)
[2023-12-06 14:46] VITALS: BP 114/77; PULSE 83; RESP 18; TEMP 36.3; O2SAT 95
--- NOTE | 2023-12-07 07:00 | USCV_ITS ---
Janette Coley Age: 68 Gender: F : 1955 Exam Date: 12/07/2023 06:57 Ordering Phys: Sarah De Leon APRN Technologist: Jeannette Corbin [place]am [place] [facility] [place] Indication: F/U RUE VENOUS US. EVAL FOR PICCLINE CLOT HISTORY: PICCLINE RUE PROCEDURES: Venous duplex imaging was performed in only the right upper extremity. The following venous structures were evaluated: internal jugular vein, subclavian vein, axillary vein, and brachial veins. In addition, the basilic vein, cephalic vein, radial vein, and ulnar vein. Serial compression, augmentation maneuvers, and spectral Doppler flow evaluation were performed. FINDINGS: No evidence of deep vein thrombosis or superficial thrombophlebitis in the right upper extremity. The veins of the right upper extremity are readily compressible with normal venous flow dynamics including spontaneous flow, respiratory phasic variation and augmentation. CONCLUSIONS No evidence of thrombus of the right upper extremity veins. RIGHT PICC partially visualized traversing the RIGHT subclavian Toy Bartlett MD (Electronically Signed) Final Date: 07 December 2023 08:42 S
--- NOTE | 2023-12-07 08:33 | ONCRAD TMN_ITS ---
Radiation Oncology Weekly Treatment Management Patient: Brijesh Savage> MR#: [id number] : 1955> Attending Physician: Dr. Tasia Marc Date of Service: 12/07/2023 Fractions: 12 out of 30 Referring Physician(s) : Giovana Whyte M.D. 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 ID: [id number], Energy: 6X, Dose/Fx (cGy): 180, #Fx: , Dose Correction (cGy): 0, Total Dose Delivered (cGy): 2,160, Start Date: 11/22/2023, Elapsed Days: 15 Reason for visit: The patient is being seen today as part of their regularly scheduled weekly on treatment visits to assess for acute toxicities from radiotherapy. Review of Systems: Patient is doing well. She remains in good spirits. She says she has an itch sensation deep in the tissue which she cannot reach. She is also noted that her left earlobe is more tender. Vital Signs: Performed on 12/07/2023 8:14 AM BMI - 31.136 kg/m2 (high), Height - 70 in, Weight - 217 lbs, Temperature - 96.5 f, Pulse - 93 /min, Respiration - 18 /min, O2 Sat - 96 %, Pain - 0, Fatigue - 2 and BP - 141/ 91 mm(hg)(high). Physical Exam: On exam on unable to see any changes in the earlobe area. The skin over the anterior portion of her face is more erythematous today in the area where her eyelid was is a little more hyperpigmented Imaging: Radiation therapy imaging related to accurate target localization (i.e. KV, MV and CBCT) was reviewed. Appropriate changes, if any, were made to ensure treatment accuracy. Plan: Continue with her treatments as planned Signed by: Dr. Tasia Marc 12/07/2023 8:31:54 AM
== END 2023-12-07 23:59 | disposition home or self-care (01) ==
LOC: ONCMED 07:19
PROVIDERS: Nurse Practitioner Family; PCP Nurse Practitioner Family; Visit Provider Nurse Practitioner Family
DX: Z51.0 Encounter for antineoplastic radiation therapy; Z53.9 Procedure and treatment not carried out, unspecified reason; C30.0 Malignant neoplasm of nasal cavity; Z95.828 Presence of other vascular implants and grafts
CPT/HCPCS: 36592; 70553; 77336; 77386; 80053; 85025; 93971; 96365; 96366; 96367; 96368; 96375; 96413; 99024; 99214; A9577; J1100; J1200; J1453; J1940; J2469; J3475; J3480; J3490; J7040; J7050; J9060

== ENCOUNTER 2023-12-24 09:15 | Oncology outpatient (recurring) (ONCR) | payer MEDICARE, MEDICAID, SELFPAY ==
[2023-12-13 08:11] LABS: Basophils # 0.1 10^3/uL (0.0-0.1); Basophils % 0.8 %; Eosinophils # 0.2 10^3/uL (0.0-0.8); Eosinophils % 3.4 %; Hematocrit 41.2 % (36-47); Lymphocytes # 1.2 10^3/uL (0.8-4.8); Lymphocytes % 16.9 %; Mean Corpuscular HGB Conc 31.8 g/dL (30-55); Mean Corpuscular Hemoglobin 27.9 pg (27-33); Mean Corpuscular Volume 87.8 fl (85-98); Mean Platelet Volume 9.2 fL (7.4-10.4); Monocytes # 0.5 10^3/uL (0.2-0.9); Monocytes % 7.1 %; Neutrophils # 5.06 10^3/uL (1.8-7.7); Neutrophils % 71.5 %; Nucleated Red Blood Cells % 0 %; Platelet Count 219 10^3/cmm (157-399); Red Blood Count 4.69 10^6/uL (3.85-5.65); White Blood Count 7.08 10^3/uL (3.29-11.43)
[2023-12-13 08:42] LABS: Alanine Aminotransferase 9 U/L (0-33); Albumin Level 3.8 g/dL (3.5-5.2); Alkaline Phosphatase 104 U/L (35-105); Anion Gap 13.5 (5-19); Aspartate Amino Transferase 12 U/L (0-32); Blood Urea Nitrogen 16 mg/dL (8-23); Calcium 9.1 mg/dL (8.5-10.5); Carbon Dioxide 28 mmol/L (22-29); Chloride 99 mmol/L (98-107); Globulin 2.9 g/dL (1.3-4.6); Glomerular Filtration Rate 82.7 mL/min (90-130); Glucose 101 mg/dL (65-115); Osmolality Calculated 283 mOsm/kg (285-295); Potassium 4.5 mmol/L (3.5-5.1); Sodium 136 mmol/L (136-145); Total Bilirubin 0.3 mg/dL (0.15-1.2); Total Protein 6.7 g/dL (6.6-8.7)
[2023-12-13 08:56] LABS: Vitamin B12 229 pg/mL (232-1245)
[2023-12-13] MEDS: magnesium sulfate premix 2 GM/50 ML PIGGYBACK IV (09:57)
[2023-12-13] MEDS: sodium chlor 0.9% + KCl 20 mEq 20 MEQ/1,000 ML BAG 500 MEQ IV (09:58)
[2023-12-13] MEDS: acetaminophen 325 mg Tablet 650 MG PO (11:37)
[2023-12-13] MEDS: sodium chloride 0.9% 250 ML 75 ML IV (11:37)
[2023-12-13] MEDS: OLANZapine 5 mg TABLET PO (11:38)
[2023-12-13] MEDS: dexamethasone 4 mg/mL INJ 12 MG IVP (11:38)
[2023-12-13] MEDS: palonosetron 0.25 mg/5 mL SDV IVP (11:42)
[2023-12-13] MEDS: famotidine 20 mg/2 mL INJ IVP (11:44)
[2023-12-13] MEDS: diphenhydrAMINE 50 mg/mL SDV 1mL 25 MG IVP (11:46)
[2023-12-13] MEDS: fosaprepitant 150 MG in sodium chloride 0.9% 150 ML 300 MG IV (11:48)
[2023-12-13] MEDS: CISPLATIN IV (12:32)
[2023-12-13] MEDS: SODIUM CHLORIDE 0.9% IV (12:32)
[2023-12-13] MEDS: FUROsemide 10 mg/mL SDV 2mL 20 MG IVP (14:02)
[2023-12-13] MEDS: potassium chloride 20 MEQ in sodium chloride 0.9% 500 ML 500 MEQ IV (14:02)
[2023-12-13 15:14] VITALS: BP 121/76; PULSE 90; RESP 16; TEMP 36.3; O2SAT 91
--- NOTE | 2023-12-14 14:28 | ONCRAD TMN_ITS ---
Radiation Oncology Weekly Treatment Management Patient: Janette Coley MR#: [id number] : 1955> Attending Physician: Dr. Tasia Marc Date of Service: 12/14/2023 Fractions: 16 out of 30 Referring Physician(s) : Giovana Whyte M.D. 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 ID: [id number], Energy: 6X, Dose/Fx (cGy): 180, #Fx: 16 / 30, Dose Correction (cGy): 0, Total Dose Delivered (cGy): 2,880, Start Date: 11/22/2023, Elapsed Days: 22 Reason for visit: The patient is being seen today as part of their regularly scheduled weekly on treatment visits to assess for acute toxicities from radiotherapy. Review of Systems: Patient has noticed some tenderness around the cheek area and dryness across her nose Vital Signs: Performed on 12/14/2023 2:20 PM BMI - 30.304 kg/m2 (high), Height - 70 in, Weight - 211.2 lbs, Temperature - 97.5 f, Pulse - 92 /min, Respiration - 18 /min, O2 Sat - 98 %, Pain - 4, Fatigue - 0 and BP - 142/ 88 mm(hg)(high/). Physical Exam: On exam her skin is somewhat dry and mildly hyperpigmented Imaging: Radiation therapy imaging related to accurate target localization (i.e. KV, MV and CBCT) was reviewed. Appropriate changes, if any, were made to ensure treatment accuracy. Plan: Will continue with treatments as planned. I asked her to go ahead and use her baby lotion on her skin. Signed by: Dr. Tasia Marc 12/14/2023 2:26:53 PM
[2023-12-16 10:24] LABS: Methylmalonic Acid 367 nmol/L (69-390)
[2023-12-20 08:44] LABS: Basophils % 0.5 %; Eosinophils # 0.2 10^3/uL (0.0-0.8); Hematocrit 37.8 % (36-47); Lymphocytes # 1.1 10^3/uL (0.8-4.8); Lymphocytes % 18.4 %; Mean Corpuscular HGB Conc 31.7 g/dL (30-55); Mean Corpuscular Hemoglobin 28.3 pg (27-33); Mean Corpuscular Volume 89.2 fl (85-98); Mean Platelet Volume 9.4 fL (7.4-10.4); Monocytes # 0.4 10^3/uL (0.2-0.9); Monocytes % 6.7 %; Neutrophils # 4.15 10^3/uL (1.8-7.7); Neutrophils % 69.9 %; Nucleated Red Blood Cells % 0 %; Platelet Count 178 10^3/cmm (157-399); Red Blood Count 4.24 10^6/uL (3.85-5.65); Red Cell Distribution Width 16.6 % (12.1-15.1); White Blood Count 5.94 10^3/uL (3.29-11.43)
[2023-12-20 08:59] LABS: Alanine Aminotransferase 7 U/L (0-33); Albumin Level 3.4 g/dL (3.5-5.2); Alkaline Phosphatase 97 U/L (35-105); Anion Gap 12.1 (5-19); Aspartate Amino Transferase 11 U/L (0-32); Blood Urea Nitrogen 16 mg/dL (8-23); Calcium 8.8 mg/dL (8.5-10.5); Carbon Dioxide 30 mmol/L (22-29); Chloride 99 mmol/L (98-107); Creatinine Clr Calc Pharmacy 81.6737; Globulin 2.8 g/dL (1.3-4.6); Glomerular Filtration Rate 70.9 mL/min (90-130); Glucose 97 mg/dL (65-115); Osmolality Calculated 285 mOsm/kg (285-295); Potassium 4.1 mmol/L (3.5-5.1); Sodium 137 mmol/L (136-145); Total Bilirubin 0.2 mg/dL (0.15-1.2); Total Protein 6.2 g/dL (6.6-8.7)
[2023-12-20] MEDS: magnesium sulfate premix 2 GM/50 ML PIGGYBACK IV (09:30)
[2023-12-20] MEDS: sodium chlor 0.9% + KCl 20 mEq 20 MEQ/1,000 ML BAG 500 MEQ IV (09:30)
[2023-12-20] MEDS: sodium chloride 0.9% 250 ML 75 ML IV (10:47)
[2023-12-20] MEDS: acetaminophen 325 mg Tablet 650 MG PO (10:50)
[2023-12-20] MEDS: dexamethasone 4 mg/mL INJ 12 MG IVP (10:51)
[2023-12-20] MEDS: OLANZapine 5 mg TABLET PO (10:51)
[2023-12-20] MEDS: palonosetron 0.25 mg/5 mL SDV IVP (10:51)
[2023-12-20] MEDS: diphenhydrAMINE 50 mg/mL SDV 1mL 25 MG IVP (10:54)
[2023-12-20] MEDS: famotidine 20 mg/2 mL INJ IVP (10:55)
[2023-12-20] MEDS: fosaprepitant 150 MG in sodium chloride 0.9% 150 ML 300 MG IV (10:57)
[2023-12-20] MEDS: SODIUM CHLORIDE 0.9% IV (12:01)
[2023-12-20] MEDS: CISPLATIN IV (12:01)
[2023-12-20] MEDS: potassium chloride 20 MEQ in sodium chloride 0.9% 500 ML 500 MEQ IV (13:45)
[2023-12-20] MEDS: FUROsemide 10 mg/mL SDV 2mL 20 MG IVP (13:46)
[2023-12-20 14:59] VITALS: BP 122/79; PULSE 80; RESP 16; TEMP 36.3; O2SAT 96
== END 2023-12-25 23:59 | disposition home or self-care (01) ==
PROVIDERS: Internal Medicine Medical Oncology; Nurse Practitioner Family; PCP Nurse Practitioner Family; Visit Provider Radiology Radiation Oncology
DX: Z53.9 Procedure and treatment not carried out, unspecified reason (principal)
CPT/HCPCS: 77336; 77386; 80053; 82607; 83921; 85025; 96360; 96361; 96365; 96366; 96367; 96368; 96375; 96413; 99024; 99214; J1100; J1200; J1453; J1940; J2469; J3475; J3480; J3490; J7040; J7050; J9060

== ENCOUNTER 2024-01-11 14:00 | Oncology outpatient (recurring) (ONCR) | payer MEDICARE, MEDICAID, SELFPAY ==
[2023-12-28 09:48] VITALS: BP 131/86; PULSE 76; RESP 16; TEMP 36.4; O2SAT 94
[2023-12-28 09:57] LABS: Basophils % 0.7 %; Eosinophils # 0.2 10^3/uL (0.0-0.8); Eosinophils % 3.6 %; Hematocrit 37.1 % (36-47); Lymphocytes # 0.9 10^3/uL (0.8-4.8); Lymphocytes % 15.3 %; Mean Corpuscular HGB Conc 32.1 g/dL (30-55); Mean Corpuscular Hemoglobin 28.5 pg (27-33); Mean Platelet Volume 9.4 fL (7.4-10.4); Monocytes # 0.4 10^3/uL (0.2-0.9); Monocytes % 6.8 %; Neutrophils # 4.43 10^3/uL (1.8-7.7); Neutrophils % 73.1 %; Nucleated Red Blood Cells % 0 %; Platelet Count 156 10^3/cmm (157-399); Red Blood Count 4.17 10^6/uL (3.85-5.65); Red Cell Distribution Width 17.4 % (12.1-15.1); White Blood Count 6.06 10^3/uL (3.29-11.43)
[2023-12-28] MEDS: sodium chlor 0.9% + KCl 20 mEq 20 MEQ/1,000 ML BAG 500 MEQ IV (10:02)
[2023-12-28] MEDS: magnesium sulfate premix 2 GM/50 ML PIGGYBACK IV (10:03)
[2023-12-28 10:18] LABS: Alanine Aminotransferase 7 U/L (0-33); Albumin Level 3.4 g/dL (3.5-5.2); Alkaline Phosphatase 97 U/L (35-105); Anion Gap 15.2 (5-19); Aspartate Amino Transferase 10 U/L (0-32); Blood Urea Nitrogen 16 mg/dL (8-23); Calcium 8.7 mg/dL (8.5-10.5); Carbon Dioxide 25 mmol/L (22-29); Chloride 100 mmol/L (98-107); Globulin 3.1 g/dL (1.3-4.6); Glomerular Filtration Rate 82.7 mL/min (90-130); Glucose 98 mg/dL (65-115); Osmolality Calculated 283 mOsm/kg (285-295); Potassium 4.2 mmol/L (3.5-5.1); Sodium 136 mmol/L (136-145); Total Bilirubin 0.3 mg/dL (0.15-1.2); Total Protein 6.5 g/dL (6.6-8.7)
--- NOTE | 2023-12-28 10:41 | ONCRAD TMN_ITS ---
Radiation Oncology Weekly Treatment Management Patient: Janette Coley MR#: [id number] : 1955 Attending Physician: Dr. Tasia Marc Date of Service: 12/28/2023 Fractions: 25 out of 30 Referring Physician(s) : Giovana Whyte M.D. 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 ID: [id number], Energy: 6X, Dose/Fx (cGy): 180, #Fx: 25 / 30, Dose Correction (cGy): 0, Total Dose Delivered (cGy): 4,500, Start Date: 11/22/2023, Elapsed Days: 36 Reason for visit: The patient is being seen today as part of their regularly scheduled weekly on treatment visits to assess for acute toxicities from radiotherapy. Review of Systems: Patient's eye is less inflamed today. She did poultry picking machine tender the eyedrops. Examination of oral cavity reveals slight erythema across the soft palate and the upper left mandibular area. Her skin otherwise is erythematous and dry. Vital Signs: Performed on 12/28/2023 9:47 AM BMI - 29.931 kg/m2 (high), Height - 70 in, Weight - 208.6 lbs, Temperature - 97.6 f, Pulse - 76 /min, Respiration - 16 /min, O2 Sat - 96 %, Pain - 0, Fatigue - 3 and BP - 131/ 86 mm(hg). Physical Exam: Her oral cavity revealed mild erythema across the soft palate. Her skin is otherwise dry and hyperpigmented. Imaging: Radiation therapy imaging related to accurate target localization (i.e. KV, MV and CBCT) was reviewed. Appropriate changes, if any, were made to ensure treatment accuracy. Plan: We talked about using oral gel on the area where it is tender. Or using salt water or baking soda rinses. She also prefers to suck on hard candy which seems to make it better. She will be finished in a week with her treatment. Signed by: Dr. Tasia Marc 12/28/2023 10:40:27 AM
[2023-12-28] MEDS: sodium chloride 0.9% 250 ML 75 ML IV (12:03)
[2023-12-28] MEDS: OLANZapine 5 mg TABLET PO (12:12)
[2023-12-28] MEDS: acetaminophen 325 mg Tablet 650 MG PO (12:13)
[2023-12-28] MEDS: palonosetron 0.25 mg/5 mL SDV IVP (12:14)
[2023-12-28] MEDS: famotidine 20 mg/2 mL INJ IVP (12:16)
[2023-12-28] MEDS: diphenhydrAMINE 50 mg/mL SDV 1mL 25 MG IVP (12:17)
[2023-12-28] MEDS: fosaprepitant 150 MG in sodium chloride 0.9% 150 ML 300 MG IV (12:28)
[2023-12-28] MEDS: dexamethasone 4 mg/mL INJ 12 MG IVP (13:47)
[2023-12-28] MEDS: CISPLATIN IV (14:11)
[2023-12-28] MEDS: SODIUM CHLORIDE 0.9% IV (14:11)
[2023-12-28] MEDS: FUROsemide 10 mg/mL SDV 2mL 20 MG IVP (15:26)
[2023-12-28] MEDS: potassium chloride 20 MEQ in sodium chloride 0.9% 500 ML 500 MEQ IV (15:31)
[2023-12-28 16:41] VITALS: BP 141/93; PULSE 88; RESP 17; TEMP 36.2; O2SAT 98
--- NOTE | 2024-01-04 09:17 | N.ONRD TS_ITS ---
Radiation Oncology Treatment Summary Patient: Janette Coley MR#: [id number] : 1955 Age: 68 Sex: Female Dictated by: Dr. Tasia Marc Date of Service: 01/04/2024 Referring Physician(s) : Robin Casas M.D. 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 ID: SUPRACLAV, Energy: 15X, Dose/Fx (cGy): 180, #Fx: / , Dose Correction (cGy): 0, Total Dose Delivered (cGy): 5,040, Start Date: 01/27/2012, End Date: 03/10/2012, Elapsed Days: 43 Course: Course1, Treatment Site: LT CHESTWALL, Ref. ID: CHESTWALL, Energy: 6X, Dose/Fx (cGy): 180, #Fx: / 14, Dose Correction (cGy): 0, Total Dose Delivered (cGy): 2,520, Start Date: 01/27/2012, End Date: 03/09/2012, Elapsed Days: 42 Course: Course1, Treatment Site: LT CHESTWALL BOLUS, Ref. ID: LT CHESTWALL, Energy: 6X, Dose/Fx (cGy): 180, #Fx: 14 / 14, Dose Correction (cGy): 0, Total Dose Delivered (cGy): 2,520, Start Date: 01/28/2012, End Date: 03/10/2012, Elapsed Days: 42 Course: Course1, Treatment Site: LT DRAIN SITE, Ref. ID: LT DRAIN SITE, Energy: 9E, Dose/Fx (cGy): 200, #Fx: 25 / 25, Dose Correction (cGy): 0, Total Dose Delivered (cGy): 5,000, Start Date: 02/04/2012, End Date: 03/14/2012, Elapsed Days: 39 Course: Course1, [facility], Ref. ID: LT CWALL BST, Energy: 9E, Dose/Fx (cGy): 200, #Fx: 2 / 5, Dose Correction (cGy): 0, Total Dose Delivered (cGy): 400, Start Date: 03/11/2012, End Date: 03/14/2012, Elapsed Days: 3 Course: HN 2023, Treatment Site: [id number], Ref. ID: [id number], Energy: 6X, Dose/Fx (cGy): 180, #Fx: 30 / 30, Dose Correction (cGy): 0, Total Dose Delivered (cGy): 5,400, Start Date: 11/22/2023, End Date: 01/04/2024, Elapsed Days: 43 Vital Signs: Performed on 01/04/2024 8:49 AM BMI - 29.558 kg/m2 (high), Height - 70 in, Weight - 206 lbs, Temperature - 97.2 f, Pulse - 105 /min (high), Respiration - 16 /min, O2 Sat - 100 %, Pain - 0, Fatigue - 0 and BP - 118/ 76 mm(hg). Clinical Summary: The patient tolerated RT well. She had intermittent nosebleeds. Her skin became hyperpigmented and dry. She continued to have pain in the surgical area. She does have an appointment end of January in [place] with her surgical team. Plan: End of treatment today. Continue on the above medication until the skin reaction resolves. Follow up in one month. Signed by: Dr. Dozier Monico>01/04/2024 9:15:57 AM <<Signature on File>>
[2024-01-11 14:40] VITALS: BP 102/69; PULSE 91; RESP 17; TEMP 36.1; O2SAT 99
[2024-01-11] MEDS: sodium chloride 0.9% 1,000 ML 75 ML IV (14:55)
[2024-01-11] MEDS: ondansetron 2 mg/ML SDV 2 mL 8 MG IVP (14:55)
[2024-01-11 14:57] LABS: Anion Gap 14.4 (5-19); Blood Urea Nitrogen 20 mg/dL (8-23); Calcium 8.9 mg/dL (8.5-10.5); Carbon Dioxide 28 mmol/L (22-29); Chloride 99 mmol/L (98-107); Creatinine Clr Calc Pharmacy 81.5518; Glomerular Filtration Rate 70.9 mL/min (90-130); Glucose 103 mg/dL (65-115); Osmolality Calculated 287 mOsm/kg (285-295); Potassium 4.4 mmol/L (3.5-5.1); Sodium 137 mmol/L (136-145)
[2024-01-11 16:18] VITALS: BP 120/76; PULSE 90; RESP 17; TEMP 36; O2SAT 98
== END 2024-01-24 23:59 | disposition home or self-care (01) ==
PROVIDERS: Internal Medicine Medical Oncology; Nurse Practitioner Family; PCP Nurse Practitioner Family; Visit Provider Radiology Radiation Oncology
DX: Z53.9 Procedure and treatment not carried out, unspecified reason (principal); D49.1 Neoplasm of unspecified behavior of respiratory system; Z79.899 Other long term (current) drug therapy
CPT/HCPCS: 77336; 77386; 80048; 80053; 85025; 96360; 96361; 96367; 96375; 96413; 99024; J1100; J1200; J1453; J1940; J2405; J2469; J3475; J3480; J3490; J7030; J7040; J7050; J9060

== ENCOUNTER 2024-02-02 08:41 | Oncology outpatient (recurring) (ONCR) | payer MEDICARE, MEDICAID, SELFPAY ==
[2024-02-02 10:00] LABS: Basophils % 0.5 %; Eosinophils # 0.2 10^3/uL (0.0-0.8); Eosinophils % 2.4 %; Hematocrit 44.4 % (36-47); Lymphocytes # 0.9 10^3/uL (0.8-4.8); Lymphocytes % 14.3 %; Mean Corpuscular HGB Conc 33.3 g/dL (30-55); Mean Corpuscular Hemoglobin 30.3 pg (27-33); Mean Platelet Volume 8.9 fL (7.4-10.4); Monocytes # 0.5 10^3/uL (0.2-0.9); Neutrophils # 4.67 10^3/uL (1.8-7.7); Neutrophils % 74.3 %; Nucleated Red Blood Cells % 0 %; Platelet Count 262 10^3/cmm (157-399); Red Blood Count 4.88 10^6/uL (3.85-5.65); Red Cell Distribution Width 19.9 % (12.1-15.1); White Blood Count 6.28 10^3/uL (3.29-11.43)
[2024-02-02 10:18] LABS: Alanine Aminotransferase < 5 U/L (0-33); Albumin Level 3.7 g/dL (3.5-5.2); Alkaline Phosphatase 101 U/L (35-105); Anion Gap 14.8 (5-19); Aspartate Amino Transferase 11 U/L (0-32); Blood Urea Nitrogen 10 mg/dL (8-23); Calcium 8.8 mg/dL (8.5-10.5); Carbon Dioxide 28 mmol/L (22-29); Chloride 98 mmol/L (98-107); Globulin 3.2 g/dL (1.3-4.6); Glomerular Filtration Rate 70.9 mL/min (90-130); Glucose 105 mg/dL (65-115); Osmolality Calculated 283 mOsm/kg (285-295); Potassium 3.8 mmol/L (3.5-5.1); Sodium 137 mmol/L (136-145); Total Bilirubin 0.4 mg/dL (0.15-1.2); Total Protein 6.9 g/dL (6.6-8.7)
--- NOTE | 2024-02-02 10:52 | ONCRAD EPV_ITS ---
Radiation Oncology Established Patient Visit Patient: Brijesh Savage [id number] : 1955> Age: 68> Sex: Female> Dictated by: Dr. Tasia Marc Date of Service: 02/02/2024 Referring Physician(s) : Giovana Whyte M.D. 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 Radiotherapy to Date: Course: Course1, Treatment Site: SUPRACLAV, Ref. ID: SUPRACLAV, Energy: 15X, Dose/Fx (cGy): 180, #Fx: , Dose Correction (cGy): 0, Total Dose Delivered (cGy): 5,040, Start Date: 01/27/2012, End Date: 03/10/2012, Elapsed Days: 43 Treatment Site: LT CHESTWALL, Ref. ID: LT CHESTWALL, Energy: 6X, Dose/Fx (cGy): 180, #Fx: , Dose Correction (cGy): 0, Total Dose Delivered (cGy): 2,520, Start Date: 01/27/2012, End Date: 03/09/2012, Elapsed Days: 42 Treatment Site: LT CHESTWALL BOLUS, Ref. ID: LT CHESTWALL, Energy: 6X, Dose/Fx (cGy): 180, #Fx: , Dose Correction (cGy): 0, Total Dose Delivered (cGy): 2,520, Start Date: 01/28/2012, End Date: 03/10/2012, Elapsed Days: 42 Treatment Site: LT DRAIN SITE, Ref. ID: DRAIN SITE, Energy: 9E, Dose/Fx (cGy): 200, #Fx: 25 / 25, Dose Correction (cGy): 0, Total Dose Delivered (cGy): 5,000, Start Date: 02/04/2012, End Date: 03/14/2012, Elapsed Days: 39 Treatment [facility]: [facility], [facility], Energy: 9E, Dose/Fx (cGy): 200, #Fx: 2 / 5, Dose Correction (cGy): 0, Total Dose Delivered (cGy): 400, Start Date: 03/11/2012, End Date: 03/14/2012, Elapsed Days: 3 Treatment Site: HN54Gy, Ref. ID: [id number], Energy: 6X, Dose/Fx (cGy): 180, #Fx: 30 / 30, Dose Correction (cGy): 0, Total Dose Delivered (cGy): 5,400, Start Date: 11/22/2023, End Date: 01/04/2024, Elapsed Days: , 3 Current History: She is now 1 month from completing her postop treatment. She has good days and bad days. She can have 3 good days in a row and then she will have a day where she is nauseous all day. She is using her Xanax for her nausea. She had used Zofran previously and this made her more nauseous. She has dropped 9 pounds since completing treatment. She began to have some mild nausea right at the end of her treatment course. Current Medications: Advair, aspirin, benadryl, calcium 600+D, cholecalciferol, colace, diazepam, diphenhydrAMINE HCl, gabapentin, morphine Sulfate CR, morphine Sulfate ER, naprosyn, nicoderm CQ, nystatin, oxyCODONE HCl, oxyCODONE HCl IR, senna S, skelaxin, spiriva HandiHaler, valium, ventolin HFA. Allergies: No Known Allergies Current Complaints / Review of Systems: . Vital Signs: Performed on 02/02/2024 9:36 AM BMI - 28.353 kg/m2 (high), Height - 70 in, Weight - 197.6 lbs, Temperature - 96.6 f, Pulse - 107 /min (high), Respiration - 18 /min, O2 Sat - 96 %, Pain - 8, Fatigue - 0 and BP - 119/ 84 mm(hg). Physical Exam: General: Alert and oriented x 3. No acute distress. HEENT: The area of her surgery has healed. Her skin has healed from the erythema she developed during her radiation. Her left eye appears to be intact. Extraocular muscles are intact. Performance Status: 90 Lab: None pending. Pathology: Primary, c30.0 - malignant neoplasm of nasal cavity, Diagnosed 10/25/2023 (active) , Primary, z17.0 - estrogen receptor positive status [er+], Diagnosed 01/13/2016 (active) , Primary, d75.1 - secondary polycythemia, Diagnosed 07/20/2013 (active) , Primary, c50.212 - malignant neoplasm of upper-inner quadrant of left female breast, Diagnosed 07/16/2011 (active) stage iiib, t4b, pn0, m0, Secondary, 300.00 - anxiety state, unspecified, Diagnosed 04/26/1799 (active) , Secondary, 496 - chronic airway obstruction, not elsewhere classified, Diagnosed 04/26/1799 (active) , Secondary, 493.20 - chronic obstructive asthma without mention of status asthmaticus, Diagnosed 04/26/1799 (active) , Secondary, 715.00 - osteoarthrosis, generalized, involving unspecified site, Diagnosed 04/26/1799 (active) , Secondary, 733.00 - osteoporosis, unspecified, Diagnosed 04/26/1799 (active) , Secondary, 272.4 - other and unspecified hyperlipidemia, Diagnosed 04/26/1799 (active) and Secondary, 327.23 - obstructive sleep apnea (adult) (pediatric), Diagnosed 11/28/2013 (active) . Imaging: See HPI Impression: Nasal cavity tumor status post extensive surgery followed by postop radiation and chemotherapy Plan: At this time she appears to recover from her treatments but she is developed intermittent nausea which is actually affected her weight substantially. She does not have any GI complaints. She has no diarrhea. She just will have days intermittently where she is nauseous and really cannot eat much. She also continues to deal with the anxiety postsurgery. We talked today about how she will visit her surgery team end of January. They have scans scheduled for her at that time. She will also visit with medical oncology today to review her lab work. At this point I have asked her to take her alprazolam for her anxiety and I will go ahead and send Compazine to the pharmacy for her to use for her nausea. Will otherwise have her return in 3 months or she will call if any problems should arise in the interim Signed by: 02/02/2024 10:50:59 AM <<Signature on File>> Time spent with patient:20 CPT Code: CPT Code:
== END 2024-02-24 23:59 | disposition home or self-care (01) ==
PROVIDERS: Nurse Practitioner Family; PCP Nurse Practitioner Family; Visit Provider Radiology Radiation Oncology
DX: D49.1 Neoplasm of unspecified behavior of respiratory system; Z79.899 Other long term (current) drug therapy; C30.0 Malignant neoplasm of nasal cavity; Z79.52 Long term (current) use of systemic steroids; Z79.630 Long term (current) use of alkylating agent
CPT/HCPCS: 36415; 80053; 85025; 99024; 99213

== ENCOUNTER 2024-05-10 09:21 | Oncology outpatient (recurring) (ONCR) | payer MEDICARE, MEDICAID, SELFPAY ==
[2024-05-10 09:46] LABS: Basophils % 0.5 %; Eosinophils # 0.3 10^3/uL (0.0-0.8); Hematocrit 44.3 % (36-47); Lymphocytes # 1.6 10^3/uL (0.8-4.8); Lymphocytes % 19.7 %; Mean Corpuscular HGB Conc 32.5 g/dL (30-55); Mean Corpuscular Hemoglobin 30.6 pg (27-33); Mean Corpuscular Volume 94.3 fl (85-98); Mean Platelet Volume 9.2 fL (7.4-10.4); Monocytes # 0.5 10^3/uL (0.2-0.9); Monocytes % 6.4 %; Neutrophils # 5.49 10^3/uL (1.8-7.7); Neutrophils % 68.9 %; Nucleated Red Blood Cells % 0 %; Platelet Count 291 10^3/cmm (157-399); Red Cell Distribution Width 13.2 % (12.1-15.1); White Blood Count 7.97 10^3/uL (3.29-11.43)
[2024-05-10 10:11] LABS: Alanine Aminotransferase < 5 U/L (0-33); Albumin Level 3.6 g/dL (3.5-5.2); Alkaline Phosphatase 111 U/L (35-105); Aspartate Amino Transferase 12 U/L (0-32); Blood Urea Nitrogen 28 mg/dL (8-23); Calcium 8.9 mg/dL (8.5-10.5); Carbon Dioxide 29 mmol/L (22-29); Chloride 99 mmol/L (98-107); Creatinine Clr Calc Pharmacy 62.4473; Globulin 3.7 g/dL (1.3-4.6); Glucose 102 mg/dL (65-115); Osmolality Calculated 290 mOsm/kg (285-295); Sodium 137 mmol/L (136-145); Total Bilirubin 0.4 mg/dL (0.15-1.2); Total Protein 7.3 g/dL (6.6-8.7)
[2024-05-10 10:28] LABS: Anion Gap 13.2 (5-19); Potassium 4.2 mmol/L (3.5-5.1)
--- NOTE | 2024-05-10 14:52 | ONCRAD EPV_ITS ---
Radiation Oncology Established Patient Visit Patient: Janette Coley [id number] : 1955 Age: 69 Sex: Female Dictated by: Dr. Tasia Marc Date of Service: 05/10/2024 Referring Physician(s) : Giovana Whyte M.D. 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 ID: [email or web address] , : 15X, Dose/Fx (cGy): 180, #Fx: , Dose Correction (cGy): 0, Total Dose Delivered (cGy): 5,040 , Date: 01/27/2012, End Date: 03/10/2012, Elapsed Days: 43 Course: Course1, Treatment Site: LT CHESTWALL, Ref. ID: LT CHESTWALL, Energy: 6X, /Fx (cGy): 180, #Fx: 14 / 14, Dose Correction (cGy): 0, Total Dose Delivered (cGy): 2,520, Start Date: 01/27/2012, End Date: 03/09/2012, Elapsed Days: 42 Course: Course1, Treatment Site: LT CHESTWALL BOLUS, Ref. ID: LT CHESTWALL, Energy: 6X, Dose/Fx (cGy): 180, #Fx: 14 / 14, Dose Correction (cGy): 0, Total Dose Delivered (cGy): 2,520, Start Date: 01/28/2012, End Date: 03/10/2012, Elapsed Days: 42 Course: Course1, Treatment Site: LT DRAIN SITE, Ref. ID: LT DRAIN SITE, Energy: 9E, Dose/Fx (cGy): 200, #Fx: 25 / 25, Dose Correction (cGy): 0, Total Dose Delivered (cGy): 5,000, Start Date: 02/04/2012, End Date: 03/14/2012, Elapsed Days: 39 Course: Course1, [facility], Ref. ID: LT [facility], Energy: 9E, , /Fx (cGy): 200, #Fx: 2 / 5, Dose Correction (cGy): 0, Total Dose Delivered (cGy): 400, Start Date: 03/11/2012, End Date: 03/14/2012, Elapsed Days: 3 Course: HN 2023, Treatment Site: HN54Gy, Ref. 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 Her nausea has decreased substantially. She has no headaches. She was actually able to eat a T-bone steak yesterday. Her appetite is returned. She has no new aches or pains. She saw her surgical team in January with scans and was given a clean bill of health. Current Medications: Advair, aspirin, benadryl, calcium 600+D, cholecalciferol, colace, diazepam, diphenhydrAMINE HCl, gabapentin, morphine Sulfate CR, morphine Sulfate ER, naprosyn, nicoderm CQ, nystatin, oxyCODONE HCl, oxyCODONE HCl IR, senna S, skelaxin, spiriva HandiHaler, valium, ventolin HFA. Allergies: No Known Allergies Current Complaints / Review of Systems: . Vital Signs: Performed on 05/10/2024 9:36 AM BMI - 28.123 kg/m2 (high), Height - 70 in, Weight - 196 lbs, Temperature - 98.7 f, Pulse - 85 /min, Respiration - 17 /min, O2 Sat - 91 % (low), Pain - 6, Fatigue - 0 and BP - 106/ 73 mm(hg). Physical Exam: General: Alert and oriented x 3. No acute distress. HEENT: Examination of the right eye reveals the pupil to be reactive, extraocular muscles are intact. Her neck is supple. The surgical side appears to be nicely healed. The dry skin has decreased substantially. LUNGS: Respiratory rate is regular nonlabored. HEART: Regular rate and rhythm. . ABDOMEN: No palpable masses were noted EXTREMITIES: No peripheral edema is identified NEUROLOGIC: Alert and orient x 3. Gait and speech within normal limits Performance Status: 90 Lab: None pending. Pathology: Primary, c30.0 - malignant neoplasm of nasal cavity, Diagnosed 10/25/2023 (active) , Primary, z17.0 - estrogen receptor positive status [er+], Diagnosed 01/13/2016 (active) , Primary, d75.1 - secondary polycythemia, Diagnosed 07/20/2013 (active) , Primary, c50.212 - malignant neoplasm of upper-inner quadrant of left female breast, Diagnosed 07/16/2011 (active) stage iiib, t4b, pn0, m0, Secondary, 300.00 - anxiety state, unspecified, Diagnosed 04/26/1799 (active) , Secondary, 496 - chronic airway obstruction, not elsewhere classified, Diagnosed 04/26/1799 (active) , Secondary, 493.20 - chronic obstructive asthma without mention of status asthmaticus, Diagnosed 04/26/1799 (active) , Secondary, 715.00 - osteoarthrosis, generalized, involving unspecified site, Diagnosed 04/26/1799 (active) , Secondary, 733.00 - osteoporosis, unspecified, Diagnosed 04/26/1799 (active) , Secondary, 272.4 - other and unspecified hyperlipidemia, Diagnosed 04/26/1799 (active) and Secondary, 327.23 - obstructive sleep apnea (adult) (pediatric), Diagnosed 11/28/2013 (active) . 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 Plan: At this time she is doing well. She is recovered nicely. She will see medical oncology today as well. She will be seeing her surgical team again in May. Medical oncology will be seeing her every 3 months. At this point I will wait to see how often her surgical team is going to see her. I have asked her to call if they do not schedule her to be followed up again. She will need a PET scan in a few more months. Signed by: 05/10/2024 2:51:14 PM <<Signature on File>> Time spent with patient:20 CPT Code: CPT Code:
== END 2024-05-26 23:59 | disposition home or self-care (01) ==
PROVIDERS: Nurse Practitioner Family; PCP Nurse Practitioner Family; Visit Provider Radiology Radiation Oncology
DX: C30.0 Malignant neoplasm of nasal cavity (principal); D49.1 Neoplasm of unspecified behavior of respiratory system; Z85.3 Personal history of malignant neoplasm of breast; Z92.3 Personal history of irradiation; F17.200 Nicotine dependence, unspecified, uncomplicated; Z92.21 Personal history of antineoplastic chemotherapy
CPT/HCPCS: 36415; 80053; 85025; 99024; 99214

== ENCOUNTER 2024-08-08 12:20 | Oncology outpatient (recurring) (ONCR) | payer MEDICARE, MEDICAID, SELFPAY ==
[2024-08-08 12:37] LABS: Basophils # 0.1 10^3/uL (0.0-0.1); Basophils % 0.6 %; Eosinophils # 0.4 10^3/uL (0.0-0.8); Eosinophils % 5.2 %; Hematocrit 39.3 % (36-47); Lymphocytes % 23.8 %; Mean Corpuscular HGB Conc 32.1 g/dL (30-55); Mean Corpuscular Hemoglobin 30.1 pg (27-33); Mean Platelet Volume 9.2 fL (7.4-10.4); Monocytes # 0.6 10^3/uL (0.2-0.9); Monocytes % 6.9 %; Neutrophils # 5.21 10^3/uL (1.8-7.7); Neutrophils % 63.3 %; Nucleated Red Blood Cells % 0 %; Platelet Count 295 10^3/cmm (157-399); Red Blood Count 4.18 10^6/uL (3.85-5.65); Red Cell Distribution Width 14.1 % (12.1-15.1); White Blood Count 8.24 10^3/uL (3.29-11.43)
[2024-08-08 12:53] LABS: Alanine Aminotransferase 6 U/L (0-33); Albumin Level 3.3 g/dL (3.5-5.2); Alkaline Phosphatase 105 U/L (35-105); Anion Gap 13.3 (5-19); Aspartate Amino Transferase 10 U/L (0-32); Blood Urea Nitrogen 11 mg/dL (8-23); Calcium 8.6 mg/dL (8.5-10.5); Carbon Dioxide 30 mmol/L (22-29); Chloride 101 mmol/L (98-107); Creatinine Clr Calc Pharmacy 55.4266; Globulin 3.3 g/dL (1.3-4.6); Glucose 83 mg/dL (65-115); Osmolality Calculated 289 mOsm/kg (285-295); Potassium 4.3 mmol/L (3.5-5.1); Sodium 140 mmol/L (136-145); Total Bilirubin 0.3 mg/dL (0.15-1.2); Total Protein 6.6 g/dL (6.6-8.7)
== END 2024-08-23 23:59 | disposition home or self-care (01) ==
PROVIDERS: PCP Nurse Practitioner Family; Visit Provider Internal Medicine
DX: Z08 Encounter for follow-up examination after completed treatment for malignant neoplasm (principal); Z85.22 Personal history of malignant neoplasm of nasal cavities, middle ear, and accessory sinuses; Z92.3 Personal history of irradiation; Z92.21 Personal history of antineoplastic chemotherapy
CPT/HCPCS: 36415; 80053; 85025; 99213

== ENCOUNTER 2024-11-07 10:53 | Oncology outpatient (recurring) (ONCR) | payer MEDICARE, MEDICAID, SELFPAY ==
[2024-11-07 11:10] LABS: Hematocrit 41.2 % (36-47); Hemoglobin 13.60 g/dL (11.27-16.99); Mean Corpuscular HGB Conc 33.0 g/dL (30-55); Mean Corpuscular Hemoglobin 30.1 pg (27-33); Mean Corpuscular Volume 91.2 fl (85-98); Nucleated Red Blood Cells % 0 %; Platelet Count 296 10^3/cmm (157-399); Red Blood Count 4.52 10^6/uL (3.85-5.65); White Blood Count 16.43 10^3/uL (3.29-11.43)
[2024-11-07 11:25] LABS: Alanine Aminotransferase < 5 U/L (0-33); Albumin Level 3.5 g/dL (3.5-5.2); Alkaline Phosphatase 93 U/L (35-105); Anion Gap 13.4 (5-19); Aspartate Amino Transferase 13 U/L (0-32); Blood Urea Nitrogen 20 mg/dL (8-23); Calcium 9.0 mg/dL (8.5-10.5); Carbon Dioxide 29 mmol/L (22-29); Chloride 99 mmol/L (98-107); Creatinine Clr Calc Pharmacy 53.0083; Globulin 3.5 g/dL (1.3-4.6); Glucose 88 mg/dL (65-115); Osmolality Calculated 286 mOsm/kg (285-295); Potassium 4.4 mmol/L (3.5-5.1); Sodium 137 mmol/L (136-145); Total Protein 7.0 g/dL (6.6-8.7)
== END 2024-11-23 23:59 | disposition home or self-care (01) ==
PROVIDERS: PCP Nurse Practitioner Family; Visit Provider Internal Medicine
DX: Z08 Encounter for follow-up examination after completed treatment for malignant neoplasm (principal); Z85.22 Personal history of malignant neoplasm of nasal cavities, middle ear, and accessory sinuses; Z92.3 Personal history of irradiation; Z92.21 Personal history of antineoplastic chemotherapy
CPT/HCPCS: 36415; 80053; 85025; 99214

== ENCOUNTER 2025-01-04 07:43 | Outpatient (CLI) | payer MEDICARE, MEDICAID, SELFPAY ==
--- NOTE | 2025-01-04 07:54 | XRR_ITS ---
PROCEDURE INFORMATION: Exam: XR Lumbosacral Spine Exam date and time: 01/04/2025 8:00 AM Age: 69 years old Clinical indication: Low back pain; Additional info: Spondylosis of lumbosacral region without myelopathy TECHNIQUE: Imaging protocol: Radiologic exam of the lumbosacral spine. Views: 6 or more views. Including flexion and extension views. COMPARISON: CT lumbar spine wo con* [id number] 07/30/2021 12:01 PM FINDINGS: Bones/joints: There is a grade 1 anterior spondylolisthesis of L4 on L5. There is translational motion with flexion. At neutral it measures 6 mm. With flexion measures 11 mm. The image with extension appears to be still in partial flexion. The distance measures 10.5 mm. Moderate to severe disc space narrowing is present at every level. The bones appear osteopenic. No acute fractures are identified. Endplate compression deformity of L3 is noted. Soft tissues: Unremarkable. Lungs: Lung bases are clear. Gastrointestinal tract: There is a large amount of stool present in the colon. XR/XR lumbar spine 6V w f/e [id number] IMPRESSION: Osteopenia with multilevel degenerative disc disease and grade 1 spondylolisthesis of L4 on L5.
== END 2025-01-04 07:44 | disposition home or self-care (01) ==
LOC: RAD 07:48
PROVIDERS: PCP Family Medicine; Visit Provider Student in an Organized Health Care Education/Training Program
DX: M47.817 Spondylosis without myelopathy or radiculopathy, lumbosacral region (principal)
CPT/HCPCS: 72114

== ENCOUNTER 2025-02-06 09:04 | Oncology outpatient (recurring) (ONCR) | payer MEDICARE, MEDICAID, SELFPAY ==
[2025-02-06 09:41] LABS: Hematocrit 40.9 % (36-47); Hemoglobin 13.60 g/dL (11.27-16.99); Mean Corpuscular HGB Conc 33.3 g/dL (30-55); Mean Corpuscular Hemoglobin 31.1 pg (27-33); Mean Corpuscular Volume 93.6 fl (85-98); Nucleated Red Blood Cells % 0 %; Platelet Count 268 10^3/cmm (157-399); Red Blood Count 4.37 10^6/uL (3.85-5.65); White Blood Count 10.21 10^3/uL (3.29-11.43)
[2025-02-06 10:01] LABS: Alanine Aminotransferase 9 U/L (0-33); Albumin Level 4.0 g/dL (3.5-5.2); Alkaline Phosphatase 94 U/L (35-105); Anion Gap 12.7 (5-19); Aspartate Amino Transferase 11 U/L (0-32); Blood Urea Nitrogen 18 mg/dL (8-23); Calcium 9.1 mg/dL (8.5-10.5); Carbon Dioxide 30 mmol/L (22-29); Chloride 98 mmol/L (98-107); Globulin 3.3 g/dL (1.3-4.6); Glucose 88 mg/dL (65-115); Osmolality Calculated 283 mOsm/kg (285-295); Potassium 4.7 mmol/L (3.5-5.1); Sodium 136 mmol/L (136-145); Total Protein 7.3 g/dL (6.6-8.7)
== END 2025-02-23 23:59 | disposition home or self-care (01) ==
PROVIDERS: Nurse Practitioner; PCP Family Medicine; Visit Provider Internal Medicine
DX: Z53.9 Procedure and treatment not carried out, unspecified reason; Z08 Encounter for follow-up examination after completed treatment for malignant neoplasm; Z85.22 Personal history of malignant neoplasm of nasal cavities, middle ear, and accessory sinuses; F17.200 Nicotine dependence, unspecified, uncomplicated; F41.9 Anxiety disorder, unspecified; M51.369 Other intervertebral disc degeneration, lumbar region without mention of lumbar back pain or lower extremity pain; M41.86 Other forms of scoliosis, lumbar region; M48.56XA Collapsed vertebra, not elsewhere classified, lumbar region, initial encounter for fracture; M51.379 Other intervertebral disc degeneration, lumbosacral region without mention of lumbar back pain or lower extremity pain; M43.16 Spondylolisthesis, lumbar region; Z71.6 Tobacco abuse counseling; Z92.21 Personal history of antineoplastic chemotherapy; Z92.3 Personal history of irradiation
CPT/HCPCS: 36415; 72110; 80053; 83615; 85025; 99203; 99214

== ENCOUNTER 2025-02-19 13:08 | Outpatient (RCR) | payer MEDICARE, MEDICAID, SELFPAY | END 2025-02-23 23:59 | disposition home or self-care (01) | LOC: TPT 13:08 | PROVIDERS: Visit Provider Orthopaedic Surgery | DX: M54.9 Dorsalgia, unspecified (principal); G89.29 Other chronic pain | CPT/HCPCS: 97162 ==

== ENCOUNTER 2025-02-28 09:03 | Outpatient (RCR) | payer MEDICARE, MEDICAID, SELFPAY | END 2025-03-25 23:59 | disposition home or self-care (01) | LOC: TPT 09:03 | PROVIDERS: PCP Family Medicine; Visit Provider Orthopaedic Surgery | DX: M54.9 Dorsalgia, unspecified (principal); G89.29 Other chronic pain | CPT/HCPCS: 97110 ==